=== PATIENT | female | born 1955 | race Caucasian/White ===

== ENCOUNTER 2016-08-03 06:43 | Day surgery (SDC) | payer BC ==
[~2016-08-03 06:43] MED LIST: Lactated Ringers 1,000 ML IV SCH; Lidocaine 1%/Sod Bicarbonate in NS 8.4% 1 ML Syringe IV PRN; Sodium Chloride 0.9% 10 ML Syringe FLUSH PRN
[2016-08-03] MEDS ORDERED: Dexamethasone 4 MG/ML 5 ML MDV ONE (07:17)
[2016-08-03] MEDS ORDERED: fentaNYL 100 MCG/2 ML SDV ONE (07:17)
[2016-08-03] MEDS ORDERED: Lidocaine 1% 6 ML ONE (07:17)
[2016-08-03] MEDS ORDERED: Ondansetron 4 MG/2 ML SDV ONE (07:17)
[2016-08-03] MEDS ORDERED: Midazolam 1 MG/ML 2 ML SDV ONE (07:17)
[2016-08-03] MEDS ORDERED: Propofol 200 MG/20 ML SDV ONE (07:17)
[2016-08-03] MEDS ORDERED: ceFAZolin 1 GM Vial ONE (07:17)
[2016-08-03] MEDS ORDERED: Ketorolac 30 MG/ML SDV ONE (07:17)
--- NOTE | 2016-08-03 07:27 | PCM.PREANE ---
Preanesthetic Assessment - Physical Assessment NPO Status Date: 08/02/16 NPO Status Time: 21:30 O2 Sat by Pulse Oximetry: 99 Respiratory Rate: 16 Vital Signs: Last Vital Signs Temp 36.2 C 08/03/16 06:55 Pulse 91 08/03/16 06:55 Resp 16 08/03/16 06:55 BP 158/88 H 08/03/16 06:55 Pulse Ox 99 08/03/16 06:55 Height: 1.55 m Weight: 88.451 kg - Lab Values: Laboratory Last Values WBC 8.32 K/mm3 (3.98-10.04) 08/02/16 13:38 RBC 5.13 M/mm3 (3.98-5.22) 08/02/16 13:38 Hgb 14.9 gm/L (11.2-15.7) 08/02/16 13:38 Hct 45.0 % (34.1-44.9) H 08/02/16 13:38 MCV 87.7 fl (79.4-94.8) 08/02/16 13:38 MCH 29.0 pg (25.6-32.2) 08/02/16 13:38 MCHC 33.1 g/dl (32.2-35.5) 08/02/16 13:38 RDW Std Deviation 49.4 fL (36.4-46.3) H 08/02/16 13:38 Plt Count 310 K/mm3 (182-369) 08/02/16 13:38 MPV 10.4 fl (9.4-12.3) 08/02/16 13:38 Neut % (Auto) 62.0 % (34.0-71.1) 08/02/16 13:38 Lymph % (Auto) 25.7 % (19.3-51.7) 08/02/16 13:38 [place] % (Auto) 10.1 % (4.7-12.5) 08/02/16 13:38 Eos % (Auto) 1.2 (0.7-5.8) 08/02/16 13:38 Baso % (Auto) 0.5 % (0.1-1.2) 08/02/16 13:38 Neut # (Auto) 5.16 K/mm3 (1.56-6.13) 08/02/16 13:38 Lymph # (Auto) 2.14 K/mm3 (1.18-3.74) 08/02/16 13:38 [place] # (Auto) 0.84 K/mm3 (0.24-0.36) H 08/02/16 13:38 Eos # (Auto) 0.10 K/mm3 (0.04-0.36) 08/02/16 13:38 Baso # (Auto) 0.04 K/mm3 (0.01-0.08) 08/02/16 13:38 Blood Type A POSITIVE 08/02/16 13:38 Gel Antibody Screen Negative 08/02/16 13:38 - Allergies Allergies/Adverse Reactions: Allergies Allergy/AdvReac Type Severity Reaction Status Date / Time lisinopril Allergy Cannot Verified 08/02/16 13:49 Remember Penicillins Allergy Cannot Verified 08/02/16 13:49 Remember - Acknowledgements Anesthesia Type Planned: General Anesthesia Pt an Appropriate Candidate for the Planned Anesthesia: Yes Alternatives and Risks of Anesthesia Discussed w Pt/Guardian: Yes Pt/Guardian Understands and Agrees with Anesthesia Plan: Yes PreAnesthesia Questionnaire HEENT History: Reports: Allergic rhinitis, Otitis media Other HEENT History: eustachian tube dysfunction, pharyngitis, has glasses and flipper Cardiovascular History: Reports: Afib, High cholesterol, Hypertension Respiratory History: Reports: None Gastrointestinal History: Reports: GERD Genitourinary History: Reports: Urinary incontinence, UTI, recurrent Other Genitourinary History: vaginal itching, viral warts, stress urinary incontinence, fibroid, post menopausal bleeding, L breast cyst, vaginitis GRAIN WEIGHER History: Reports: Other (see below) Other OB/BYN History: vaginal dryness Musculoskeletal History: Reports: Other (see below) Other Musculoskeletal History: restless leg syndrome, L illiotibial band syndrome, L knee pain Neurological History: Reports: Migraines, Vertigo, Other (see below) Other Neuro History: restless leg syndrome, dizziness Psychiatric History: Reports: Anxiety, Depression Endocrine/Metabolic History: Reports: Hypothyroidism Hematologic History: Reports: None Immunologic History: Reports: None Oncologic (Cancer) History: Reports: None Dermatologic History: Reports: Other (see below) Other Dermatologic History: atopic dermatitis, back nevus - Infectious Disease History Infectious Disease History: Reports: Chicken pox, Measles - Past Surgical History Head Surgeries/Procedures: Reports: None HEENT Surgical History: Reports: Oral surgery, Tonsillectomy Female Surgical History: Reports: Tubal ligation - SUBSTANCE USE Smoking Status *Q: Never Smoker Recreational Drug Use History: No - HOME MEDS Home Medications: Home Meds Carbidopa/Levodopa [Carbidopa-Levodopa 25-100] 1 tab PO BEDTIME 05/23/15 [ History] LORazepam [Ativan] 1 mg PO BID PRN 05/23/15 [History] Levothyroxine 75 mcg PO DAILY 05/23/15 [History] Simvastatin [Zocor] 40 mg PO BEDTIME 05/23/15 [History] Venlafaxine HCl [Venlafaxine ER] 75 mg PO DAILY 05/23/15 [History] amLODIPine [Norvasc] 10 mg PO DAILY 05/23/15 [History] Fish Oil/[place]-3 Fatty Acids [Fish Oil 1,000 MG] 2 cap PO DAILY 08/02/16 [ History] Fluticasone Propionate [Flonase] 2 spray NASBOTH BID 08/02/16 [History] Hydrochlorothiazide 25 mg PO DAILY 08/02/16 [History] - CURRENT (IN HOUSE) MEDS Current Meds: Current Medications Lactated Ringer's (Ringers, Lactated) 1,000 mls @ 125 mls/hr IV ASDIRECTED TANESHA Stop: 08/03/16 23:00 Lidocaine/Sodium Bicarbonate (Buffered Lidocaine 1% In Ns 8.4%) 0.25 ml IV ONETIME PRN PRN Reason: Prior to IV Start Stop: 08/03/16 18:00 Sodium Chloride (Saline Flush) 10 ml FLUSH ASDIRECTED PRN PRN Reason: Keep Vein Open Stop: 08/03/16 18:00 Discontinued Medications Cefazolin Sodium (Ancef) Confirm Administered Dose 2 gm .ROUTE .STK-MED ONE Stop: 08/03/16 07:18 Dexamethasone (Dexamethasone) Confirm Administered Dose 20 mg .ROUTE .STK-MED ONE Stop: 08/03/16 07:18 Fentanyl (Sublimaze) Confirm Administered Dose 100 mcg .ROUTE .STK-MED ONE Stop: 08/03/16 07:18 Lidocaine HCl (Xylocaine-Mpf 1%) Confirm Administered Dose 6 mls @ as directed .ROUTE .STK-MED ONE Stop: 08/03/16 07:18 Ketorolac Tromethamine (Toradol) Confirm Administered Dose 60 mg .ROUTE .STK- MED ONE Stop: 08/03/16 07:18 Midazolam HCl (Versed 1 Mg/Ml) Confirm Administered Dose 2 mg .ROUTE .STK-MED ONE Stop: 08/03/16 07:18 Ondansetron HCl (Zofran) Confirm Administered Dose 4 mg .ROUTE .STK-MED ONE Stop: 08/03/16 07:18 Propofol (Diprivan 20 Ml) Confirm Administered Dose 200 mg .ROUTE .STK-MED ONE Stop: 08/03/16 07:18 Preanesthetic Assessment - ANESTHESIA/TRANSFUSION/FAMILY HX Anesthesia/Transfusion History: No Prior Transfusion(s), Prior Anesthesia Type of Anesthesia Reaction: Reports: Other (see below) (recent bout with vertigo/scopalamine patch placed.). 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 Respiratory: Reports: no symptoms (quit smoking 25 years ago.) Cardiovascular: Reports: no symptoms (history of atrial fibrillation), blood pressure problem, dyspnea on exertion, lightheadedness (with vertigo) GI: Reports: no symptoms (GERD) Other: Reports: Easy Bruising, Thyroid Problems, Depression, Anxiety - PHYSICAL ASSESSMENT HR: 91 O2 Sat by Pulse Oximetry: 99 RR: 16 BP: 158/88 Temp: 36.2 C Vital Signs: Last Vital Signs Temp 36.2 C 08/03/16 06:55 Pulse 91 08/03/16 06:55 Resp 16 08/03/16 06:55 BP 158/88 H 08/03/16 06:55 Pulse Ox 99 08/03/16 06:55 Height: 1.55 m Weight: 88.451 kg NPO Status Date: 08/02/16 NPO Status Time: 21:30 ASA Class: 2 Mental Status: Alert & Oriented x3 Airway Class: Mallampati = 3 Dentition: Reports: Normal Dentition, Partial, Caries Thyro-Mental Finger Breadths: 3 Mouth Opening Finger Breadths: 3 ROM/Head Extension: Full Respiratory Status: lungs clear to auscultation bilaterally Cardiovascular Status: regular rate & rhythm, normal S1, S2, no murmur - LAB Values: Laboratory Last Values WBC 8.32 K/mm3 (3.98-10.04) 08/02/16 13:38 RBC 5.13 M/mm3 (3.98-5.22) 08/02/16 13:38 Hgb 14.9 gm/L (11.2-15.7) 08/02/16 13:38 Hct 45.0 % (34.1-44.9) H 08/02/16 13:38 MCV 87.7 fl (79.4-94.8) 08/02/16 13:38 MCH 29.0 pg (25.6-32.2) 08/02/16 13:38 MCHC 33.1 g/dl (32.2-35.5) 08/02/16 13:38 RDW Std Deviation 49.4 fL (36.4-46.3) H 08/02/16 13:38 Plt Count 310 K/mm3 (182-369) 08/02/16 13:38 MPV 10.4 fl (9.4-12.3) 08/02/16 13:38 Neut % (Auto) 62.0 % (34.0-71.1) 08/02/16 13:38 Lymph % (Auto) 25.7 % (19.3-51.7) 08/02/16 13:38 [place] % (Auto) 10.1 % (4.7-12.5) 08/02/16 13:38 Eos % (Auto) 1.2 (0.7-5.8) 08/02/16 13:38 Baso % (Auto) 0.5 % (0.1-1.2) 08/02/16 13:38 Neut # (Auto) 5.16 K/mm3 (1.56-6.13) 08/02/16 13:38 Lymph # (Auto) 2.14 K/mm3 (1.18-3.74) 08/02/16 13:38 [place] # (Auto) 0.84 K/mm3 (0.24-0.36) H 08/02/16 13:38 Eos # (Auto) 0.10 K/mm3 (0.04-0.36) 08/02/16 13:38 Baso # (Auto) 0.04 K/mm3 (0.01-0.08) 08/02/16 13:38 Blood Type A POSITIVE 08/02/16 13:38 Gel Antibody Screen Negative 08/02/16 13:38 Reviewed and noted. - IMAGING/EKG Impressions: EKG: SR rte= 89 - ALLERGIES Allergies/Adverse Reactions: Allergies Allergy/AdvReac Type Severity Reaction Status Date / Time lisinopril Allergy Cannot Verified 08/02/16 13:49 Remember Penicillins Allergy Cannot Verified 08/02/16 13:49 Remember - ANESTHESIA PLAN Preop Beta [place]a: No Anesthesia Type Planned: General Anesthesia - ACKNOWLEDGEMENTS Pt an Appropriate Candidate for the Planned Anesthesia: Yes Alternatives and Risks of Anesthesia Discussed w Pt/Guardian: Yes Pt/Guardian Understands and Agrees with Anesthesia Plan: Yes
[2016-08-03] MEDS ORDERED: Scopolamine 1.5 MG Transdermal Patch TRDERM ONE (07:28)
[2016-08-03] MEDS ORDERED: Ondansetron 4 MG/2 ML SDV IVPUSH PRN (08:04)
--- NOTE | 2016-08-03 08:33 | PCM.POSTAN ---
POST ANESTHESIA ASSESSMENT - MENTAL STATUS Mental Status: alert - VITAL SIGNS Pulse Rate: 97 SaO2: 98 Resp Rate: 11 Blood Pressure: 149/92 Temperature: 36.7 C - RESPIRATORY Respiratory Status: respiratory rate WNL, airway patent, O2 saturation stable, supplemental oxygen - CARDIOVASCULAR CV Status: pulse rate WNL, blood pressure stable - GASTROINTESTINAL GI Status: no symptoms - POST OP HYDRATION Hydration Status: adequate & stable
--- NOTE | 2016-08-03 08:44 | PCM.OPNOTE ---
- General Post-Op/Procedure Note Date of Surgery/Procedure: 08/03/16 Operative Procedure(s): Dilatation curettage, hysteroscopy, [id number] Pre Op Diagnosis: Postmenopausal bleeding, thickened endometrium by ultrasound, fibroid uterus, subserosal Post-Op Diagnosis: Same Anesthesia Technique: General ET tube Primary Surgeon: Hesham Bangura Anesthesia Provider: Laila Castañeda Manager Council: Gail Agosto ([id number]) Fluid Replacement, Intraop: 500 Output, Urine Amount: 0 EBL in mLs: 0 Drain/Tube Comments:: None Complications: None Condition: Good Free Text/Narrative:: Patient was transported to operating room #2 placed under general anesthesia with endotracheal intubation in the low dorsal lithotomy position. Prepared and draped in sterile fashion. SCDs in place and functioning. Prior surgery. Ancef 2 g intravenously given prior surgery. Timeout performed confirming name , date of , and procedure, D&C, and hysteroscopy. Examination under anesthesia revealed anterior uterus. No abnormalities could be palpated, albeit there is the subserosal fibroid 2.8 cm in diameter mentioned on the ultrasound. No adnexal masses. The uterus was carefully dilated to accommodate the hysteroscope, and examination of endometrial cavity revealed a small polyp at approximate 6:00. No other retinal mouth is. No significant amount of tissue the initial cavity appeared otherwise atrophic. The polyp was grasped with Reginald stone forceps, and removed without difficulty. Measured approximately 1 x 2 mm scant amount of tissue was obtained. Less than 1 mL utilizing sharp and Michael curette inspection of the initial cavity revealed. No additional lesion, and hysteroscope patient tolerated procedure well, transported post anesthesia care unit in satisfactory condition. No blood transfusions, required none anticipated. Of talked with the patient's and discussed surgical findings. One set of pictures taken 5 urge is imaged 001, shows the right fallopian tube ostium. Image 02, shows the area where the left fallopian tube ostium. Would, probably be, but could not be seen. Specifically, imaged, 003, showed a small polyp at approximate 5:00 and centering of image, and imaged, 004, shows the polyp, at 6:00 images or 5 shows same area after removal of the polyp
[2016-08-03] MEDS ORDERED: fentaNYL 100 MCG/2 ML SDV IVPUSH PRN (09:10)
[2016-08-03] MEDS ORDERED: HYDROmorphone 0.5 MG/0.5 ML Syringe IVPUSH PRN (09:10)
[2016-08-03 09:12] VITALS: BP 138/83
--- NOTE | 2016-08-03 09:14 | PCM48HPAN ---
Post Anesthesia Note - EVALUATION WITHIN 48HRS OF ANESTHETIC Vital Signs in Normal Range: Yes Patient Participated in Evaluation: Yes Respiratory Function Stable: Yes Airway Patent: Yes Cardiovascular Function Stable: Yes Hydration Status Stable: Yes Pain Control Satisfactory: Yes Nausea and Vomiting Control Satisfactory: Yes Mental Status Recovered: Yes
== END 2016-08-03 09:51 | disposition home or self-care (01) ==
LOC: JD.SDS 06:43
PROVIDERS: ATTEND Obstetrics & Gynecology
DX: N85.01 Benign endometrial hyperplasia (principal); F41.9 Anxiety disorder, unspecified; F32.9 Major depressive disorder, single episode, unspecified; E78.00 Pure hypercholesterolemia, unspecified; I10 Essential (primary) hypertension; E78.1 Pure hyperglyceridemia; E03.9 Hypothyroidism, unspecified; Z88.0 Allergy status to penicillin; Z88.8 Allergy status to other drugs, medicaments and biological substances; Z79.899 Other long term (current) drug therapy; Z98.890 Other specified postprocedural states; Z98.51 Tubal ligation status; Z87.891 Personal history of nicotine dependence; Z72.0 Tobacco use
CPT/HCPCS: 36415; 58558; 85025; 86850; 86900; 86901; 93005; A9270; J0690; J1100; J1885; J2250; J2405; J3010; J7120; 00940; J2704

== ENCOUNTER 2017-01-13 13:30 | Emergency (ER) | payer BC ==
[2017-01-13 13:43] VITALS: BP 159/87
--- NOTE | 2017-01-13 13:55 | EDM.PDOC ---
ED HPI GENERAL MEDICAL PROBLEM - General Chief Complaint: Gastrointestinal Problem Stated Complaint: DIARRHEA/DIZZINESS Time Seen by Provider: 01/13/17 13:55 Source of Information: Reports: Patient History Limitations: Reports: No Limitations - History of Present Illness INITIAL COMMENTS - FREE TEXT/NARRATIVE: 61-year-old female presents the ED with acute onset of severe diarrhea. started mid afternoon yesterday and she's gone 14-15 times since. No blood in the stool noted. Stool is large-volume fluid loss per rectum. mild associated lower abdominal cramping pain. mild nausea without any vomiting. and dizzy when standing today. did not take any of her normal medications which include antihypertensives and thyroid supplement and statin medication. she does now remember being placed on antibiotic by dentist 2 weeks ago for dental infection. was a large pink tablets 4 times daily and she is allergic to Amoxil. My thought processes is most likely was clindamycin. She has not been traveling recently. other family members however have had gastroenteritis symptoms. She's been eating at home for the last week and is unlikely that she contracted any foodborne illness. patient did experience fever and chills yesterday afternoon at onset of illness. fells that she has been running a fever overnight. she's had no previous abdominal surgery. Onset: Sudden Onset Date: 01/12/17 Onset Time: 15:00 Duration: Hour(s):, Getting Worse Location: Reports: Other ( severe high volume water loss per rectum.) Quality: Reports: Ache, Other ( chills) Improves with: Reports: None Worsens with: Reports: None Context: Denies: Activity, Exercise, Lifting, Sick Contact, Trauma Associated Symptoms: Reports: Diaphoresis, Fever/Chills, Loss of Appetite, Malaise, Nausea/Vomiting. 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 (see below) Other Treatments BAR CAPTAIN: tylenol for fever Generalized Pain Score (Numeric/FACES): 8 - Related Data Allergies Allergy/AdvReac Type Severity Reaction Status Date / Time lisinopril Allergy Cannot Verified 08/02/16 13:49 Remember Penicillins Allergy Cannot Verified 08/02/16 13:49 Remember Home Meds: Home Meds Carbidopa/Levodopa [Carbidopa-Levodopa 25-100] 1 tab PO BEDTIME 05/23/15 [ History] LORazepam [Ativan] 1 mg PO BID PRN 05/23/15 [History] Levothyroxine 75 mcg PO DAILY 05/23/15 [History] Simvastatin [Zocor] 40 mg PO BEDTIME 05/23/15 [History] Venlafaxine HCl [Venlafaxine ER] 75 mg PO DAILY 05/23/15 [History] amLODIPine [Norvasc] 10 mg PO DAILY 05/23/15 [History] Fish Oil/[place]-3 Fatty Acids [Fish Oil 1,000 MG] 2 cap PO DAILY 08/02/16 [ History] Hydrochlorothiazide 25 mg PO DAILY 08/02/16 [History] metroNIDAZOLE [Flagyl] 500 mg PO Q8H #30 tablet 01/13/17 [Rx] Past Medical History HEENT History: Reports: Allergic Rhinitis, Otitis Media Other HEENT History: eustachian tube dysfunction, pharyngitis, has glasses and flipper Cardiovascular History: Reports: Afib, High Cholesterol, Hypertension Other Cardiovascular History: heartratte today is ST-regular and strong 01-12-17 Respiratory History: Reports: None Gastrointestinal History: Reports: GERD Genitourinary History: Reports: Urinary Incontinence, UTI, Recurrent Other Genitourinary History: vaginal itching, viral warts, stress urinary incontinence, fibroid, post menopausal bleeding, L breast cyst, vaginitis 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) Other OB/BYN History: vaginal dryness Musculoskeletal History: Reports: Other (See Below) Other Musculoskeletal History: restless leg syndrome Neurological History: Reports: Other (See Below) Other Neuro History: restless leg syndrome Psychiatric History: Reports: Anxiety, Depression Endocrine/Metabolic History: Reports: Hypothyroidism Hematologic History: Reports: None Immunologic History: Reports: None Oncologic (Cancer) History: Reports: None Dermatologic History: Reports: Other (See Below) Other Dermatologic History: atopic dermatitis, back nevus - Infectious Disease History Infectious Disease History: Reports: Chicken Pox, Measles - Past Surgical History Head Surgeries/Procedures: Reports: None HEENT Surgical History: Reports: Oral Surgery, Tonsillectomy Female Surgical History: Reports: Tubal Ligation Social & Family History - Tobacco Use Smoking Status *Q: Former Smoker Used Tobacco, but Quit: Yes Month Tobacco Last Used: 3 yrs - Caffeine Use Caffeine Use: Reports: Coffee, Soda - Recreational Drug Use Recreational Drug Use: No - Living Situation & Occupation Living situation: Reports: Occupation: Employed ED ROS GENERAL - Review of Systems Review Of Systems: See Below Constitutional: Reports: Fever, Chills, Malaise, Weakness, Fatigue, Diaphoresis , Decreased Appetite HEENT: Reports: No Symptoms Respiratory: Reports: No Symptoms Cardiovascular: Reports: No Symptoms Endocrine: Reports: Fatigue GI/Abdominal: Reports: Abdominal Pain, Diarrhea ( in the last), Nausea. Denies : Hematochezia, Stool Incontinence ( nausea without vomiting) : Reports: No Symptoms Musculoskeletal: Reports: Back Pain, Muscle Pain Skin: Reports: No Symptoms ( generalized myalgia.) Neurological: Reports: Dizziness, Weakness ( with standing. Feels weak) Psychiatric: Reports: No Symptoms ED EXAM, GI/ABD - Physical Exam Exam: See Below Exam Limited By: No Limitations General Appearance: Alert, WD/WN, Other ( does appear ill.) Eyes: Right: Normal Appearance Throat/Mouth: Normal Inspection, Normal Lips, Normal Oropharynx, Other Head: Atraumatic, Normocephalic Neck: Normal Inspection, Supple, Non-Tender, Full Range of Motion. No: Lymphadenopathy (L), Lymphadenopathy (R) Respiratory/Chest: No Respiratory Distress, Lungs Clear, Normal Breath Sounds, No Accessory Muscle Use, Respiratory Distress ( mild tachypnea at rest.) Cardiovascular: Normal Peripheral Pulses, Regular Rate, Rhythm, No Edema, No Gallop, No Murmur GI/Abdominal Exam: Normal Bowel Sounds, Soft, Non-Tender, No Organomegaly, No Distention Back Exam: Normal Inspection, Full Range of Motion. No: CVA Tenderness (L), CVA Tenderness (R) Extremities: Normal Inspection, Normal Range of Motion, Non-Tender, No Pedal Edema, Normal Capillary Refill Neurological: Alert, Oriented, CN II-XII Intact, Normal Cognition, Normal Gait, Normal Reflexes, No Motor/Sensory Deficits Psychiatric: Normal Affect, Normal Mood Skin Exam: Warm, Dry, Intact, Normal Color, No Rash Course - Vital Signs Last Recorded V/S: Last Vital Signs Temp 36.8 C 01/13/17 13:42 Pulse 131 H 01/13/17 13:42 Resp 20 01/13/17 13:42 BP 159/87 H 01/13/17 13:42 Pulse Ox 98 01/13/17 13:42 - Orders/Labs/Meds Orders: Active Orders 24 hr Category Date Time Status Abdomen 1V Flat [CR] Stat Exams 01/13/17 14:06 Taken C DIFFICILE BY PCR W/NAP1 [MOLEC] Stat Lab 01/13/17 14:05 Ordered CULTURE BLOOD [BC] Stat Lab 01/13/17 14:30 Received CULTURE BLOOD [BC] Stat Lab 01/13/17 14:36 Received Blood Culture x2 Reflex Set [OM.PC] Stat Oth 01/13/17 14:05 Ordered Labs: Laboratory Tests 01/13/17 01/13/17 01/13/17 Range/Units 14:30 14:30 14:30 WBC 6.21 (3.98-10.04) K/mm3 RBC 4.77 (3.98-5.22) M/mm3 Hgb 13.9 (11.2-15.7) gm/L Hct 41.3 (34.1-44.9) % MCV 86.6 (79.4-94.8) fl MCH 29.1 (25.6-32.2) pg MCHC 33.7 (32.2-35.5) g/dl RDW Std Deviation 47.5 H (36.4-46.3) fL Plt Count 239 (182-369) K/mm3 MPV 10.8 (9.4-12.3) fl Neutrophils % (Manual) 76 H (40-60) % Band Neutrophils % 1 (0-10) % Lymphocytes % (Manual) 22 (20-40) % Atypical Lymphs % 1 % Monocytes % (Manual) 0 L (2-10) % Eosinophils % (Manual) 0 L (0.7-5.8) % Basophils % (Manual) 0 L (0.1-1.2) Platelet Estimate Adequate Plt Morphology Comment Normal RBC Morph Comment Normal Sodium 139 (136-145) mEq/L Potassium 2.9 L (3.5-5.1) mEq/L Chloride 105 (98-107) mEq/L Carbon Dioxide 22 (21-32) mEq/L Anion Gap 14.9 (5-15) BUN 7 (7-18) mg/dL Creatinine 0.8 (0.55-1.02) mg/dL Est Cr Clr Drug Dosing 55.73 mL/min Estimated GFR (MDRD) > 60 (>60) mL/min BUN/Creatinine Ratio 8.8 L (14-18) Glucose 133 H (80-115) mg/dL Lactic Acid 1.7 (0.4-2.0) mmol/L Calcium 9.3 (8.5-10.1) mg/dL Total Bilirubin 0.5 (0.2-1.0) mg/dL AST 34 (15-37) U/L ALT 35 (14-59) U/L Alkaline Phosphatase 69 (46-116) U/L C-Reactive Protein 8.8 H* (<1.0) mg/dL Total Protein 7.1 (6.4-8.2) g/dl Albumin 3.2 L (3.4-5.0) g/dl Globulin 3.9 gm/dL Albumin/Globulin Ratio 0.8 L (1-2) Urine Color (Yellow) Urine Appearance (Clear) Urine pH (5.0-8.0) Ur Specific [place] (1.005-1.030) Urine Protein (Negative) Urine Glucose (UA) (Negative) Urine Ketones (Negative) Urine Occult Blood (Negative) Urine Nitrite (Negative) Urine Bilirubin (Negative) Urine Urobilinogen (0.2-1.0) Ur Leukocyte Esterase (Negative) Urine RBC (0-5) /hpf Urine WBC (0-5) /hpf Ur Epithelial Cells (0-5) /hpf Urine Bacteria (FEW) /hpf Urine Mucus (FEW) /hpf Ketones (0.0-0.3) mM 01/13/17 01/13/17 Range/Units 14:30 15:53 WBC (3.98-10.04) K/mm3 RBC (3.98-5.22) M/mm3 Hgb (11.2-15.7) gm/L Hct (34.1-44.9) % MCV (79.4-94.8) fl MCH (25.6-32.2) pg MCHC (32.2-35.5) g/dl RDW Std Deviation (36.4-46.3) fL Plt Count (182-369) K/mm3 MPV (9.4-12.3) fl Neutrophils % (Manual) (40-60) % Band Neutrophils % (0-10) % Lymphocytes % (Manual) (20-40) % Atypical Lymphs % % Monocytes % (Manual) (2-10) % Eosinophils % (Manual) (0.7-5.8) % Basophils % (Manual) (0.1-1.2) Platelet Estimate Plt Morphology Comment RBC Morph Comment Sodium (136-145) mEq/L Potassium (3.5-5.1) mEq/L Chloride (98-107) mEq/L Carbon Dioxide (21-32) mEq/L Anion Gap (5-15) BUN (7-18) mg/dL Creatinine (0.55-1.02) mg/dL Est Cr Clr Drug Dosing mL/min Estimated GFR (MDRD) (>60) mL/min BUN/Creatinine Ratio (14-18) Glucose (80-115) mg/dL Lactic Acid (0.4-2.0) mmol/L Calcium (8.5-10.1) mg/dL Total Bilirubin (0.2-1.0) mg/dL AST (15-37) U/L ALT (14-59) U/L Alkaline Phosphatase (46-116) U/L C-Reactive Protein (<1.0) mg/dL Total Protein (6.4-8.2) g/dl Albumin (3.4-5.0) g/dl Globulin gm/dL Albumin/Globulin Ratio (1-2) Urine Color Yellow (Yellow) Urine Appearance Clear (Clear) Urine pH 7.0 (5.0-8.0) Ur Specific [place] 1.020 (1.005-1.030) Urine Protein 1+ H (Negative) Urine Glucose (UA) 2+ H (Negative) Urine Ketones 1+ H (Negative) Urine Occult Blood Negative (Negative) Urine Nitrite Negative (Negative) Urine Bilirubin 1+ H (Negative) Urine Urobilinogen 1.0 (0.2-1.0) Ur Leukocyte Esterase Negative (Negative) Urine RBC Not seen (0-5) /hpf Urine WBC 0-5 (0-5) /hpf Ur Epithelial Cells 0-5 (0-5) /hpf Urine Bacteria Not seen (FEW) /hpf Urine Mucus Not seen (FEW) /hpf Ketones 0.35 (0.0-0.3) mM Meds: Medications Discontinued Medications Generic Name Dose Route Start Last Admin Trade Name Freq PRN Reason Stop Dose Admin Dextrose/Sodium Chloride 1,000 mls @ 999 mls/hr 01/13/17 14:15 01/13/17 14:33 Dextrose 5%-Normal Saline IV 999 mls/hr ASDIRECTED TANESHA Administration Potassium Chloride/Dextrose/Sod Cl 1,000 mls @ 125 mls/hr 01/13/17 15:45 D5 Ns With 40 Meq Kcl IV ASDIRECTED TANESHA Ketorolac Tromethamine 30 mg 01/13/17 14:15 01/13/17 14:34 Toradol IVPUSH 30 mg ONETIME TANESHA Administration Metronidazole 500 mg 01/13/17 17:25 01/13/17 17:37 Flagyl PO 01/13/17 17:26 500 mg ONETIME ONE Administration Ondansetron HCl 4 mg 01/13/17 14:15 01/13/17 14:34 Zofran IVPUSH 01/13/17 14:16 4 mg ONETIME ONE Administration Potassium Chloride 20 meq 01/13/17 17:24 01/13/17 17:37 Klor-Con M20 PO 01/13/17 17:25 20 meq ONETIME ONE Administration - Radiology Interpretation Free Text/Narrative:: 61-year-old female presents to the ED for evaluation of aggressive onset of diarrhea 24 hours ago. She's got about 14-15 times high volume water loss per rectum. No blood noted. history of antibiotic usage for about one week i.e. suspect clindamycin 300 mg 4 times a day for from the dentist for dental infection. It did clear up the dental pain. Last medication dosage was about a week ago. therefore current diarrhea may well be Clostridium difficile enteritis. patient is acutely ill with fever chills. Mild associated nausea. Routine labs and stool for culture and sensitivity WBCs and C. difficile to be done. Blood cultures 2 will be obtained. IV will be D5 normal saline at open. Will give her Toradol 30 mg IV with Zofran 4 mg IV. - Re-Assessments/Exams Free Text/Narrative Re-Assessment/Exam: 01/13/17 17:33: patient has not been able to have a bowel movement since in the department. we did confirm that the tablets she was taking were is in fact clindamycin 300 mg 4 times a day. therefore still strongly suspect that she has C. difficile enteritis. she will therefore go home with a collection chamber for this organism and return the specimen to the lab when one becomes available. She will then start Flagyl 500 mg 3 times daily for the next 10 days to clear up infection sh she has potassium supplements at home which she has not been taking. She is at been advised that the diarrhea has reduced her serum potassium levels to quite low levels. She was given 20 mEq tablet in the ED plus to his potassium added to her IV. She will take 20 mEq daily for the next 4 days or until the diarrhea stops which I expect to take 48-72 hours. she is advised to drink plenty of fluids such as Gatorade or Powerade or juices to help restore her electrolyte status. clear fluid diet ideally for the next 24 hours until the diarrhea comes under control. Avoid all dairy products and no apple or grape juice until stools become formed up and also no fatty foods. Departure - Departure Time of Disposition: 17:37 Disposition: Home, Self-Care 01 Condition: Fair Clinical Impression: Hypokalemia due to loss of potassium, C. difficile diarrhea - Discharge Information Prescriptions: metroNIDAZOLE [Flagyl] 500 mg PO Q8H #30 tablet Instructions: Hypokalemia, Clostridium Difficile Infection, [id number] Referrals: Keysha Paredes PA [Primary Care Provider] - Forms: ED Department Discharge Additional Instructions: evaluation the emergency room today in regards to development of severe diarrhea starting yesterday afternoon. history of recent use of clindamycin 4 times daily for dental infection which was discontinued about a week ago. unfortunately you did not have any stools while in the department today and therefore confirmation of C. difficile enteritis could not be carried out. However clinically it is highly suspicious this is what you have. the collection chambers have been sent home with you to collect a sample to return to the lab didn't either later tonight or tomorrow morning. after this she may start her antibiotic Flagyl 500 mg which is to be taken 3 times daily for the next 10 days to clear up this infection. continue Gatorade and Powerade to can maintain hydration. Stay away from all dairy products and no apple or grape juice until stools are formed back up. When hungry may try crackers broth soup and then advance to light diet such as Jell-O past approached a exhibits etc. stay away from fatty foods until stools are formed back up. usually things improve in 48-72 hours after starting oral antibiotic. second problem was low potassium secondary to loss in diarrhea stool. you're given 20 mEq of potassium orally in the ED plus some in your IV while you're in the department. need to take 20 mEq daily for the next 3 days to restore your potassium to normal values. there is also some potassium in Gatorade and Powerade and other juices. follow-up with personal physician if not markedly improved in 72 hours time or return to the ED. - My Orders Last 24 Hours: My Active Orders 01/13/17 14:05 C DIFFICILE BY PCR W/NAP1 [MOLEC] Stat Blood Culture x2 Reflex Set [OM.PC] Stat 01/13/17 14:06 Abdomen 1V Flat [CR] Stat 01/13/17 14:30 CULTURE BLOOD [BC] Stat 01/13/17 14:36 CULTURE BLOOD [BC] Stat - Assessment/Plan Last 24 Hours: My Active Orders 01/13/17 14:05 C DIFFICILE BY PCR W/NAP1 [MOLEC] Stat Blood Culture x2 Reflex Set [OM.PC] Stat 01/13/17 14:06 Abdomen 1V Flat [CR] Stat 01/13/17 14:30 CULTURE BLOOD [BC] Stat 01/13/17 14:36 CULTURE BLOOD [BC] Stat
[2017-01-13] MEDS ORDERED: Dextrose 5%-0.9% NaCl 1,000 ML IV SCH (14:15)
[2017-01-13] MEDS ORDERED: Ketorolac 30 MG/ML SDV IVPUSH SCH (14:15)
[2017-01-13] MEDS ORDERED: Ondansetron 4 MG/2 ML SDV IVPUSH ONE (14:15)
[2017-01-13] MEDS ORDERED: D5%-0.9% NaCl w/ KCl 40 meq 1,000 ML IV SCH (15:45)
[2017-01-13] MEDS ORDERED: Potassium Chloride 20 MEQ Tab.ER PO ONE (17:24)
[2017-01-13] MEDS ORDERED: metroNIDAZOLE 500 MG Tab PO ONE (17:25)
--- NOTE | 2017-01-14 17:59 | CR ---
Abdomen: Supine view of the abdomen was obtained. Comparison: No prior abdominal study. Calcifications are seen within the pelvis compatible with phleboliths. Bowel gas pattern appears normal. Sclerotic area is noted within the left iliac bone most likely due to large bone island. Impression: 1. Incidental findings. Nothing acute is seen on supine abdominal x-ray. Diagnostic code #2
== END 2017-01-13 18:02 | disposition home or self-care (01) ==
LOC: JD.ED 13:30
DX: E87.6 Hypokalemia (principal); A04.7 Enterocolitis due to Clostridium difficile; E78.00 Pure hypercholesterolemia, unspecified; I10 Essential (primary) hypertension; F41.9 Anxiety disorder, unspecified; F32.9 Major depressive disorder, single episode, unspecified; E03.9 Hypothyroidism, unspecified; K21.9 Gastro-esophageal reflux disease without esophagitis; Z88.0 Allergy status to penicillin; Z88.8 Allergy status to other drugs, medicaments and biological substances; Z79.899 Other long term (current) drug therapy; Z87.440 Personal history of urinary (tract) infections; Z98.890 Other specified postprocedural states; Z87.891 Personal history of nicotine dependence
CPT/HCPCS: 36415; 74000; 80053; 81001; 82009; 83605; 85025; 86140; 87040; 96361; 96374; 96375; 99284; A9270; J1885; J2405; J7042

== ENCOUNTER 2017-03-28 08:12 | Day surgery (SDC) | payer BC ==
[2017-03-28] MEDS ORDERED: Bupivacaine 0.25% 30 ML SDV ONE (08:36)
[2017-03-28] MEDS ORDERED: EPINEPHrine 1 MG/ML 30 ML MDV ONE (08:36)
--- NOTE | 2017-03-28 09:38 | PCM.PREANE ---
Preanesthetic Assessment - Anesthesia/Transfusion/Family Hx Anesthesia History: Prior Anesthesia Without Reaction Family History of Anesthesia Reaction: No Transfusion History: No Prior Transfusion(s) Intubation History: Unknown - Review of Systems General: No Symptoms Pulmonary: No Symptoms Cardiovascular: No Symptoms Gastrointestinal: No Symptoms Neurological: Dizziness, Other (Vertigo very infrequent occurance. ) Other: Reports: Depression (Restless leg syndrome controlled with medication. ) , Anxiety - Physical Assessment NPO Status Date: 03/27/17 NPO Status Time: 22:00 O2 Sat by Pulse Oximetry: 97 Respiratory Rate: 16 Vital Signs: Last Vital Signs Temp 36.7 C 03/28/17 08:30 Pulse 95 03/28/17 08:30 Resp 16 03/28/17 08:30 BP 137/81 03/28/17 08:30 Pulse Ox 97 03/28/17 08:30 Height: 1.55 m Weight: 83.915 kg ASA Class: 2 Mental Status: Alert & Oriented x3 Airway Class: Mallampati = 2 Dentition: Reports: Normal Dentition, Partial (lower) Thyro-Mental Finger Breadths: 2 Mouth Opening Finger Breadths: 3 ROM/Head Extension: Full Lungs: Clear to Auscultation, Normal Respiratory Effort Cardiovascular: Regular Rate, Regular Rhythm - Lab Values: Laboratory Last Values MRSA (PCR) Negative 03/15/17 12:30 Reviewed K 3.8 today. - Allergies Allergies/Adverse Reactions: Allergies Allergy/AdvReac Type Severity Reaction Status Date / Time lisinopril Allergy Cannot Verified 03/28/17 09:00 Remember Penicillins Allergy Cannot Verified 03/28/17 09:00 Remember - Acknowledgements Anesthesia Type Planned: General Anesthesia, Regional Block Pt an Appropriate Candidate for the Planned Anesthesia: Yes Alternatives and Risks of Anesthesia Discussed w Pt/Guardian: Yes Pt/Guardian Understands and Agrees with Anesthesia Plan: Yes PreAnesthesia Questionnaire HEENT History: Reports: Allergic Rhinitis, Otitis Media, Other (See Below) Other HEENT History: eustachian tube dysfunction, pharyngitis, has glasses and flipper Cardiovascular History: Reports: Afib, High Cholesterol, Hypertension Other Cardiovascular History: heartratte today is ST-regular and strong 01-12-17 Respiratory History: Reports: None Gastrointestinal History: Reports: GERD, Hemorrhoids Genitourinary History: Reports: Urinary Incontinence, UTI, Recurrent Other Genitourinary History: vaginal itching, viral warts, stress urinary incontinence, fibroid, post menopausal bleeding, L breast cyst, vaginitis 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) Other OB/BYN History: vaginal dryness Musculoskeletal History: Reports: Other (See Below) Other Musculoskeletal History: restless leg syndrome, IT band syndrome, L knee pain, muscle cramps Neurological History: Reports: Migraines, Vertigo, Other (See Below) Other Neuro History: dizzienss, vertigo Psychiatric History: Reports: Anxiety, Depression Endocrine/Metabolic History: Reports: Hypothyroidism, Obesity/BMI 30+ Hematologic History: Reports: None Immunologic History: Reports: None Oncologic (Cancer) History: Reports: None Dermatologic History: Reports: Other (See Below) Other Dermatologic History: atopic dermatitis, back nevus, viral warts - Infectious Disease History Infectious Disease History: Reports: Chicken Pox, Measles - Past Surgical History Head Surgeries/Procedures: Reports: None HEENT Surgical History: Reports: Oral Surgery, Tonsillectomy Respiratory Surgical History: Reports: None Female Surgical History: Reports: Tubal Ligation Endocrine Surgical History: Reports: None Musculoskeletal Surgical History: Reports: None - SUBSTANCE USE Smoking Status *Q: Former Smoker Recreational Drug Use History: No - HOME MEDS Home Medications: Home Meds Carbidopa/Levodopa [Carbidopa-Levodopa 25-100] 1 tab PO BEDTIME 05/23/15 [ History] LORazepam [Ativan] 1 mg PO BID PRN 05/23/15 [History] Levothyroxine 75 mcg PO DAILY 05/23/15 [History] Venlafaxine HCl [Venlafaxine ER] 75 mg PO DAILY 05/23/15 [History] amLODIPine [Norvasc] 10 mg PO DAILY 05/23/15 [History] Fish Oil/[place]-3 Fatty Acids [Fish Oil 1,000 MG] 2 cap PO BID 08/02/16 [History] Hydrochlorothiazide 25 mg PO DAILY 08/02/16 [History] Cefdinir [Omnicef] 300 mg PO BID 03/27/17 [History] atorvaSTATin Calcium [Atorvastatin Calcium] 20 mg PO DAILY 03/27/17 [History] Acetaminophen/HYDROcodone [Printer 325-5 MG] 1 - 2 tab PO Q6H PRN #40 tablet 03/28 [Rx] Cyclobenzaprine [Flexeril] 10 mg PO Q8H PRN #40 tablet 03/28/17 [Rx] - CURRENT (IN HOUSE) MEDS Current Meds: Current Medications Lactated Ringer's (Ringers, Lactated) 1,000 mls @ 125 mls/hr IV ASDIRECTED TANESHA Last Admin: 03/28/17 08:45 Dose: 125 mls/hr Lidocaine/Sodium Bicarbonate (Buffered Lidocaine 1% In Ns 8.4%) 0.25 ml IV ONETIME PRN PRN Reason: Prior to IV Start Last Admin: 03/28/17 08:45 Dose: 0.25 ml Sodium Chloride (Saline Flush) 10 ml FLUSH ASDIRECTED PRN PRN Reason: Keep Vein Open Discontinued Medications Bupivacaine HCl (Marcaine 0.25%) Confirm Administered Dose 30 ml .ROUTE .STK- MED ONE Stop: 03/28/17 08:37 Epinephrine HCl (Adrenalin 1:1000) Confirm Administered Dose 30 mg .ROUTE .STK- MED ONE Stop: 03/28/17 08:37
[2017-03-28] MEDS ORDERED: Rocuronium 50 MG/5 ML Vial ONE (10:00)
[2017-03-28] MEDS ORDERED: Ondansetron 4 MG/2 ML SDV ONE (10:00)
[2017-03-28] MEDS ORDERED: Propofol 200 MG/20 ML SDV ONE (10:00)
[2017-03-28] MEDS ORDERED: fentaNYL 100 MCG/2 ML SDV ONE ×2 (10:00→12:01)
[2017-03-28] MEDS ORDERED: Midazolam 1 MG/ML 2 ML SDV ONE (10:00)
[2017-03-28] MEDS ORDERED: Lidocaine 1% 2 ML ONE (10:02)
[2017-03-28] MEDS ORDERED: EPINEPHrine 1 MG/ML SDV ONE (10:05)
[2017-03-28] MEDS ORDERED: Ropivacaine 0.5% 5 MG/ML 30 ML SDV ONE (10:05)
[2017-03-28] MEDS ORDERED: Lidocaine 1% 4 ML ONE (11:04)
[2017-03-28] MEDS ORDERED: ceFAZolin 1 GM Vial ONE (11:04)
[2017-03-28] MEDS ORDERED: fentaNYL 100 MCG/2 ML SDV IVPUSH PRN (13:32)
--- NOTE | 2017-03-28 13:39 | PCM.POSTAN ---
POST ANESTHESIA ASSESSMENT - MENTAL STATUS Mental Status: Alert, Oriented - VITAL SIGNS Pulse Rate: 101 SaO2: 94 Resp Rate: 8 Blood Pressure: 160/87 Temperature: 36.5 C - RESPIRATORY Respiratory Status: Respiratory Rate WNL, Airway Patent, O2 Saturation Stable, Supplemental Oxygen - CARDIOVASCULAR CV Status: Pulse Rate WNL, Blood Pressure Stable - GASTROINTESTINAL GI Status: No Symptoms - PAIN Pain Score: 0 - POST OP HYDRATION Hydration Status: Adequate & Stable - OBSERVATIONS Free Text/Narrative:: no anesthesia complications noted
--- NOTE | 2017-03-28 13:50 | PCM.SN ---
- Free Text/Narrative Note: Note: 03/28/2017 1344 131/76 86 95% 16 Surgeon and pt request post-op pain control for left shoulder surgery risk of block failure, facial numbness, site infection, and chronic pain discussed with pt and agreed to proceed. All standard monitors est. EKG, BP, Pulse Ox, 2L O2 and 2ml versed, 2ml fentanyl pre-op dx. left shoulder pain post-op dx left shoulder arthroscopy pt for interscalene block placement all standard monitors est. pt ID time out performed IV sedation 2ml versed, 2ml fentanyl, 2L NC O2, sterile prep and drape of left neck and shoulder U/S placed with visualization of brachial plexus from clavicle to cricoid local skin infiltration 22ga. Stimplex A insulated needle visualized at brachial plexus nerve stimulator at .9 Marissa Amps stop at .4 Marissa Amps with good bicep twitch with 1ml NaCl and lose of twitch neg aspirations every 5ml of 0.5% ropivacaine and 1:200,000 epi total of 30ml injected all done with U/S guidance needle withdrawn no complications noted pt tolerated procedure well block settling in start procedure at 1007 end procedure at 1026 129/69 97 97% 16
[2017-03-28 14:36] VITALS: BP 136/79
--- NOTE | 2017-04-02 14:00 | PCM.OPNOTE ---
- General Post-Op/Procedure Note Date of Surgery/Procedure: 03/28/17 Operative Procedure(s): left shoulder video arthrscopy with rotator cuff repair , subacromial decompression and limited debridement Pre Op Diagnosis: left shoulder rotator cuff tear with impingement Post-Op Diagnosis: Same Anesthesia Technique: General ET Tube, Regional Block Primary Surgeon: Chapo Steiner Anesthesia Provider: Harpreet Andrade Jewel Hole Finish Opener: Yoanna Lei EBL in mLs: 5 Complications: None Condition: Good
--- NOTE | 2017-04-02 15:03 | OR ---
DATE OF OPERATION: 03/28/2017 SURGEON: Chapo Steiner MD OPERATION PERFORMED: Left shoulder video arthroscopy, medium rotator cuff repair, subacromial decompression, and limited debridement. PREOPERATIVE DIAGNOSIS: Left shoulder rotator cuff tear with impingement. POSTOPERATIVE DIAGNOSIS: Left shoulder rotator cuff tear with impingement. ANESTHESIA: General endotracheal intubation of interscalene block. ANESTHESIA PROVIDER: Harpreet Andrade CRNA MEDICAL CLAIMS PROCESSOR: Yoanna Lei PA-C. ESTIMATED BLOOD LOSS: 5 mL. COMPLICATIONS: None. CONDITION: Stable. DESCRIPTION OF PROCEDURE: The patient was identified in the preop holding area. Proper site was marked and identified by the surgeon. The patient was taken back to the operating theater. After adequate anesthesia, the patient was placed in the lazy right lateral decubitus position. A wedge was placed posteriorly. All bony prominences were well padded. The patient was secured to the table. At this time, left shoulder was then sterilely prepped and draped in the usual sterile fashion. OR time-out was performed. The patient received 2 g IV Ancef. At this time, a 12-pound traction was applied to the left upper extremity. Standard posterior incision was made. The scope trocar was introduced to the glenohumeral joint. At this time, the patient was noted to have no significant signs of biceps tendinopathy. There was noted to be a small amount of chondromalacia noted of the glenoid. No humeral head chondromalacia was noted. The patient was noted have a full-thickness tear of the supraspinatus near the anterior portion. No infraspinatus tear was noted. No loose foreign bodies in the axillary recess. At this time, an anterior portal was created with the use of a spinal needle and there was a partial synovectomy performed at this time. At this time, attention was turned to the subacromial space. The scope trocar was placed in the subacromial space. At this time, the patient was noted to have a large amount of bursal tissue and a debridement was done of the subacromial space at this time. Lateral portal was then created and again the footprint tear was noted at the convergence of the anterior margin of the supraspinatus. Good bony bleeding bed was then created with the use of a full- radius resector. At this time, the patient was noted to have a type 2/3 acromion and with the use of a 4-0 full-radius bur, a subacromial decompression was done back to a type 1 acromion with a smooth border. At this time, a punch was used medially for a 4.75 mm Arthrex SwiveLock anchor. This was then placed. Two limbs of FiberTape and 2 limbs of FiberWire were then applied. The 2 limbs of the FiberWire were then tied medially for a medial row repair and then all 4 limbs of the suture were brought out laterally with another 4.75 SwiveLock anchor. Punch was again used and a double row repair was placed with another 4.75 mm SwiveLock anchor laterally and it was found to have adequate watertight repair of the rotator cuff. At this time, excess saline was drained from the shoulder. A 3-0 nylon simple suture was used for closure of the skin. Sterile soft dressing was applied as well as a pillow sling. The patient was sent to PACU in stable condition. RICHELLE /[id number]
== END 2017-03-28 15:10 | disposition home or self-care (01) ==
LOC: JD.SDS 08:12
PROVIDERS: ATTEND Orthopaedic Surgery
DX: M75.122 Complete rotator cuff tear or rupture of left shoulder, not specified as traumatic (principal); M75.42 Impingement syndrome of left shoulder; M94.212 Chondromalacia, left shoulder; I10 Essential (primary) hypertension; J30.9 Allergic rhinitis, unspecified; E78.00 Pure hypercholesterolemia, unspecified; E03.9 Hypothyroidism, unspecified; E66.9 Obesity, unspecified; Z68.35 Body mass index [BMI] 35.0-35.9, adult; G25.81 Restless legs syndrome; F41.9 Anxiety disorder, unspecified; F32.9 Major depressive disorder, single episode, unspecified; Z79.899 Other long term (current) drug therapy; Z88.0 Allergy status to penicillin; Z88.8 Allergy status to other drugs, medicaments and biological substances; Z90.89 Acquired absence of other organs; Z98.51 Tubal ligation status; Z87.891 Personal history of nicotine dependence
CPT/HCPCS: 29826; 29827; 36415; 80048; 87641; J0171; J0690; J2250; J2405; J2795; J3010; J3490; J7120; 01610; 64415; J2704

== ENCOUNTER 2017-07-30 06:39 | Day surgery (SDC) | payer BC ==
[~2017-07-30 06:39] MED LIST changes: -Lactated Ringers 1,000 ML IV SCH; +Lidocaine 1%/Sod Bicarbonate in NS 8.4% 1 ML Syringe IDERM PRN; -Lidocaine 1%/Sod Bicarbonate in NS 8.4% 1 ML Syringe IV PRN
[2017-07-30] MEDS ORDERED: Lidocaine 1% with EPINEPHrine 1:100,000 20 ML MDV ONE (06:58)
[2017-07-30] MEDS ORDERED: Bupivacaine 0.5%/EPINEPHrine 1:200,000 50 ML MDV ONE (06:58)
[2017-07-30] MEDS ORDERED: Sodium Chloride 0.9% 50 ML SDV ONE (06:59)
[2017-07-30] MEDS ORDERED: Sodium Chloride 0.9% 0 ML ONE (06:59)
[2017-07-30] MEDS: Lactated Ringers 1,000 ML IV SCH ×3 (07:15→13:11)
--- NOTE | 2017-07-30 07:45 | PCM.PREANE ---
Preanesthetic Assessment - Anesthesia/Transfusion/Family Hx Anesthesia History: Prior Anesthesia Without Reaction Family History of Anesthesia Reaction: No Transfusion History: No Prior Transfusion(s) Intubation History: Unknown - Review of Systems General: Other (sinus congestion, much improved, no cough) Pulmonary: No Symptoms Cardiovascular: Palpitations (Negative holter and stress test a few years ago.) Gastrointestinal: No Symptoms Neurological: No Symptoms Other: Reports: Depression, Anxiety - Physical Assessment NPO Status Date: 07/29/17 NPO Status Time: 21:30 O2 Sat by Pulse Oximetry: 96 Respiratory Rate: 16 Vital Signs: Last Vital Signs Temp 36.8 C 07/30/17 06:50 Pulse 102 H 07/30/17 06:50 Resp 16 07/30/17 06:50 BP 137/90 07/30/17 06:50 Pulse Ox 96 07/30/17 06:50 Height: 1.55 m Weight: 83.007 kg ASA Class: 2 Mental Status: Alert & Oriented x3 Airway Class: Mallampati = 2 Dentition: Reports: Partial Thyro-Mental Finger Breadths: 3 Mouth Opening Finger Breadths: 3 ROM/Head Extension: Full Lungs: Clear to Auscultation, Normal Respiratory Effort Cardiovascular: Regular Rate, Regular Rhythm - Allergies Allergies/Adverse Reactions: Allergies Allergy/AdvReac Type Severity Reaction Status Date / Time lisinopril Allergy Cannot Verified 03/28/17 09:00 Remember Penicillins Allergy Cannot Verified 03/28/17 09:00 Remember - Acknowledgements Anesthesia Type Planned: General Anesthesia Pt an Appropriate Candidate for the Planned Anesthesia: Yes Alternatives and Risks of Anesthesia Discussed w Pt/Guardian: Yes Pt/Guardian Understands and Agrees with Anesthesia Plan: Yes PreAnesthesia Questionnaire HEENT History: Reports: Allergic Rhinitis, Otitis Media, Sinusitis, Other (See Below) Other HEENT History: eustachian tube dysfunction, pharyngitis, has glasses and flipper, impacted cerumen Cardiovascular History: Reports: Afib, High Cholesterol, Hypertension Other Cardiovascular History: edema, palpitations Respiratory History: Reports: Other (See Below) Other Respiratory History: cough Gastrointestinal History: Reports: GERD, Hemorrhoids Genitourinary History: Reports: Urinary Incontinence, UTI, Recurrent Other Genitourinary History: vaginal itching, viral warts, stress urinary incontinence, fibroid, post menopausal bleeding, L breast cyst, vaginitis [employer] History: Reports: Other (See Below) Other OB/BYN History: vaginal dryness Musculoskeletal History: Reports: Other (See Below) Other Musculoskeletal History: restless leg syndrome, IT band syndrome, L knee pain, muscle cramps Neurological History: Reports: Migraines, Vertigo, Other (See Below) Psychiatric History: Reports: Anxiety, Depression Endocrine/Metabolic History: Reports: Hypothyroidism, Obesity/BMI 30+ Hematologic History: Reports: None Immunologic History: Reports: None Oncologic (Cancer) History: Reports: None Dermatologic History: Reports: Other (See Below) Other Dermatologic History: atopic dermatitis, back nevus, viral warts - Infectious Disease History Infectious Disease History: Reports: Chicken Pox, Measles - Past Surgical History Head Surgeries/Procedures: Reports: None HEENT Surgical History: Reports: Oral Surgery, Tonsillectomy Cardiovascular Surgical History: Reports: None Respiratory Surgical History: Reports: None GI Surgical History: Reports: None Female Surgical History: Reports: Tubal Ligation Endocrine Surgical History: Reports: None Neurological Surgical History: Reports: None Musculoskeletal Surgical History: Reports: None, Shoulder Surgery Oncologic Surgical History: Reports: None - SUBSTANCE USE Smoking Status *Q: Former Smoker Recreational Drug Use History: No - HOME MEDS Home Medications: Home Meds Carbidopa/Levodopa [Carbidopa-Levodopa 25-100] 1 tab PO BEDTIME 05/23/15 [ History] LORazepam [Ativan] 1 mg PO BID PRN 05/23/15 [History] Levothyroxine 75 mcg PO DAILY 05/23/15 [History] Venlafaxine HCl [Venlafaxine ER] 75 mg PO BEDTIME 05/23/15 [History] amLODIPine [Norvasc] 10 mg PO DAILY 05/23/15 [History] Fish Oil/Norton-3 Fatty Acids [Fish Oil 1,000 MG] 2 cap PO BID 08/02/16 [History] Hydrochlorothiazide 25 mg PO DAILY 08/02/16 [History] atorvaSTATin Calcium [Atorvastatin Calcium] 20 mg PO DAILY 03/27/17 [History] Lorcaserin HCl [Belviq Xr] 20 mg PO DAILY 07/29/17 [History] - CURRENT (IN HOUSE) MEDS Current Meds: Current Medications Lactated Ringer's (Ringers, Lactated) 1,000 mls @ 125 mls/hr IV ASDIRECTED TANESHA Stop: 07/30/17 23:00 Last Admin: 07/30/17 07:15 Dose: 125 mls/hr Lidocaine/Sodium Bicarbonate (Buffered Lidocaine 1% In Ns 8.4%) 0.25 ml IDERM ONETIME PRN PRN Reason: Prior to IV Start Stop: 07/30/17 18:00 Last Admin: 07/30/17 07:15 Dose: 0.25 ml Sodium Chloride (Saline Flush) 10 ml FLUSH ASDIRECTED PRN PRN Reason: Keep Vein Open Stop: 07/30/17 18:00 Discontinued Medications Bupivacaine HCl/Epinephrine Bitart (Marcaine 0.5%/Epinephrine 1:200,000) Confirm Administered Dose 50 ml .ROUTE .STK-MED ONE Stop: 07/30/17 06:59 Sodium Chloride (Normal Saline) Confirm Administered Dose 10 mls @ as directed .ROUTE .STK-MED ONE Stop: 07/30/17 07:00 Lidocaine/Epinephrine (Xylocaine 1% With Epinephrine 1:100,000) Confirm Administered Dose 20 ml .ROUTE .STK-MED ONE Stop: 07/30/17 06:59 Sodium Chloride (Normal Saline) Confirm Administered Dose 50 ml .ROUTE .STK-MED ONE Stop: 07/30/17 07:00
[2017-07-30] MEDS ORDERED: Ondansetron 4 MG/2 ML SDV ONE (08:08)
[2017-07-30] MEDS ORDERED: Lidocaine 1% 4 ML ONE (08:08)
[2017-07-30] MEDS ORDERED: Dexamethasone 4 MG/ML 5 ML MDV ONE (08:08)
[2017-07-30] MEDS ORDERED: Lactated Ringers 1,000 ML ONE (08:08)
[2017-07-30] MEDS ORDERED: Midazolam 1 MG/ML 2 ML SDV ONE (08:08)
[2017-07-30] MEDS ORDERED: Rocuronium 50 MG/5 ML Vial ONE (08:08)
[2017-07-30] MEDS ORDERED: ceFAZolin 1 GM Vial ONE (08:08)
[2017-07-30] MEDS ORDERED: Propofol 200 MG/20 ML SDV ONE (08:08)
[2017-07-30] MEDS ORDERED: fentaNYL 250 MCG/5 ML SDV ONE (08:08)
[2017-07-30] MEDS ORDERED: HYDROmorphone 1 MG/ML Syringe ONE (08:55)
[2017-07-30] MEDS ORDERED: Glycopyrrolate 0.2 MG/ML SDV ONE ×3 (09:06→09:29)
[2017-07-30] MEDS ORDERED: Ketorolac 30 MG/ML SDV ONE (09:12)
--- NOTE | 2017-07-30 09:20 | PCM.OPNOTE ---
- General Post-Op/Procedure Note Date of Surgery/Procedure: 07/30/17 Operative Procedure(s): Total vaginal hysterectomy bilateral salpingo- oophorectomy 35850 Pre Op Diagnosis: Postmenopausal bleeding Post-Op Diagnosis: Same plus fibroid uterus Anesthesia Technique: General ET Tube Primary Surgeon: Hesham Bangura Secondary Surgeon: Alen Bravo Anesthesia Provider: Kimberly Jones Relay Worker: Brayan Encinas (HANY) Reason Relay Worker Was Necessary: Difficulty of surgery, assist in retraction, decrease comorbidity and comortality Role of Relay Worker: Difficulty of surgery, assist in retraction, decrease comorbidity and comortality Fluid Replacement, Intraop: 1,500 Output, Urine Amount: 20 EBL in mLs: 50 Drain/Tube Comments:: None Complications: None Condition: Good Free Text/Narrative:: Patient was placed under general anesthesia with endotracheal intubation in the low dorsal lithotomy position and prepared and draped in a sterile fashion. SCDs in place and functioning prior surgery. Ancef 2 g given intravenously prior surgery. Uterus was grasped with double-tooth tenaculum and 20 mL of 0.25 % lidocaine with epinephrine injected in multiple confluent areas around the cervix. The uterus was circumscribed and utilizing moist opened up 4 x 4 tissue pushed cephalad posterior colpotomy was performed without difficulty. Utilizing the LigaSure the uterosacral cardinal ligament bundle on the left side was crossclamped activated and incised same procedure carried out in the right side. Proceeding in a pedicle fashion cephalad crossclamping activating incising until the triple pedicle was approximated. The fundus of the uterus and the drum posteriorly and crossclamping the triple pedicle with Mio clamps and incising the uterus was removed. Grasping the left tube and ovary and crossclamping the infundibulopelvic ligament with the LigaSure activating and incising hemostasis was normal. Same procedure carried out on the right side. The uterus cervix tubes and ovaries removed without difficulty. Examination of the areas of the infundibulopelvic ligament showed no bleeding. The posterior cuff was closed with a running locking suture of 0 Monocryl. Hemostasis was again evaluated and found no bleeding. The infundibulopelvic ligament area showed no bleeding bilaterally. Sponge, needle, sharp, packs and 4 x 4's were counted and correct 2. The anterior cuff was approximated to the posterior cuff utilizing 0 Monocryl running locking suture. Patient was transported postanesthesia care unit in satisfactory condition. No blood transfusions were required. I talked with the patient's and all questions answered voiced satisfaction. Prescription for Percocet 5/325 dispense 25 sig 1 by mouth every 6 hours when necessary pain.
[2017-07-30] MEDS ORDERED: Albuterol 6.7 GM Inhaler INH ONE (09:29)
[2017-07-30] MEDS ORDERED: Neostigmine Methylsulfate 10 MG/10 ML MDV ONE (09:29)
[2017-07-30] MEDS ORDERED: HYDROmorphone 0.5 MG/0.5 ML Syringe IVPUSH PRN (09:41)
[2017-07-30] MEDS ORDERED: fentaNYL 100 MCG/2 ML SDV IVPUSH PRN (09:41)
[2017-07-30] MEDS ORDERED: Haloperidol Lactate 5 MG/ML SDV IVPUSH PRN (09:41)
[2017-07-30] MEDS ORDERED: diphenhydrAMINE 50 MG/ML SDV IVPUSH PRN (09:41)
--- NOTE | 2017-07-30 09:41 | PCM.POSTAN ---
POST ANESTHESIA ASSESSMENT - MENTAL STATUS Mental Status: Alert, Oriented - VITAL SIGNS Pulse Rate: 83 SaO2: 98 Resp Rate: 12 Blood Pressure: 93/55 Temperature: 36.9 C - RESPIRATORY Respiratory Status: Respiratory Rate WNL, Airway Patent, O2 Saturation Stable, Supplemental Oxygen - CARDIOVASCULAR CV Status: Pulse Rate WNL, Blood Pressure Stable - GASTROINTESTINAL GI Status: No Symptoms - PAIN Pain Score: 0 - POST OP HYDRATION Hydration Status: Adequate & Stable
[2017-07-30] MEDS ORDERED: Albuterol 0.083% 2.5 MG/3 ML Neb Soln NEB ONE (09:45)
[2017-07-30] MEDS ORDERED: Phenylephrine 1% 10 MG/ML SDV ONE (10:14)
[2017-07-30] MEDS ORDERED: Acetaminophen/oxyCODONE 325-5 MG Tab PO PRN ×2 (10:43→17:30)
[2017-07-30] MEDS ORDERED: Ketorolac 30 MG/ML SDV IVPUSH PRN (17:30)
[2017-07-30] MEDS ORDERED: Ondansetron 4 MG Tab.DIS PO PRN (17:30)
--- NOTE | 2017-07-30 17:37 | PCM.SN ---
- Free Text/Narrative Note: Patient unable to void completely, placed on urecholine and will bladder scan and straight cath as needed. Acute postop urinacy retention. No heavy vaginal bleeding. Extended floor recovery.
[2017-07-30] MEDS: Docusate Sodium 100 MG Cap PO SCH (21:12)
[2017-07-31] MEDS: Docusate Sodium 100 MG Cap PO SCH (08:04)
[2017-07-31 08:06] VITALS: BP 127/74
--- NOTE | 2017-07-31 08:26 | PCM.DCSUM1 ---
Discharge Summary - Hospital Course Free Text/Narrative:: Patient kept overnight due to urinary retention. Resolved overnight. [facility] Post-Op/Procedure Note Patient Name: JONA RANDOLPH Date of : 1955 Patient Status: Surgical Day Care Attending Provider: Hesham Bangura Date: 07/30/17 09:16 Initialization Date: 07/30/17 09:16 - General Post-Op/Procedure Note Date of Surgery/Procedure: 07/30/17 Operative Procedure(s): Total vaginal hysterectomy bilateral salpingo- oophorectomy 63324 Pre Op Diagnosis: Postmenopausal bleeding Post-Op Diagnosis: Same plus fibroid uterus Anesthesia Technique: General ET Tube Primary Surgeon: Hesham Bangura Secondary Surgeon: Alen Bravo Anesthesia Provider: Kimberly Jones Commercial Loan Analyst: Brayan Encinas (PAS) Reason Commercial Loan Analyst Was Necessary: Difficulty of surgery, assist in retraction, decrease comorbidity and comortality Role of Commercial Loan Analyst: Difficulty of surgery, assist in retraction, decrease comorbidity and comortality Fluid Replacement, Intraop: 1,500 Output, Urine Amount: 20 EBL in mLs: 50 Drain/Tube Comments:: None Complications: None Condition: Good Free Text/Narrative:: Patient was placed under general anesthesia with endotracheal intubation in the low dorsal lithotomy position and prepared and draped in a sterile fashion. SCDs in place and functioning prior surgery. Ancef 2 g given intravenously prior surgery. Uterus was grasped with double-tooth tenaculum and 20 mL of 0.25 % lidocaine with epinephrine injected in multiple confluent areas around the cervix. The uterus was circumscribed and utilizing moist opened up 4 x 4 tissue pushed cephalad posterior colpotomy was performed without difficulty. Utilizing the LigaSure the uterosacral cardinal ligament bundle on the left side was crossclamped activated and incised same procedure carried out in the right side. Proceeding in a pedicle fashion cephalad crossclamping activating incising until the triple pedicle was approximated. The fundus of the uterus and the drum posteriorly and crossclamping the triple pedicle with Mio clamps and incising the uterus was removed. Grasping the left tube and ovary and crossclamping the infundibulopelvic ligament with the LigaSure activating and incising hemostasis was normal. Same procedure carried out on the right side. The uterus cervix tubes and ovaries removed without difficulty. Examination of the areas of the infundibulopelvic ligament showed no bleeding. The posterior cuff was closed with a running locking suture of 0 Monocryl. Hemostasis was again evaluated and found no bleeding. The infundibulopelvic ligament area showed no bleeding bilaterally. Sponge, needle, sharp, packs and 4 x 4's were counted and correct 2. The anterior cuff was approximated to the posterior cuff utilizing 0 Monocryl running locking suture. Patient was transported postanesthesia care unit in satisfactory condition. No blood transfusions were required. I talked with the patient's and all questions answered voiced satisfaction. Prescription for Percocet 5/325 dispense 25 sig 1 by mouth every 6 hours when necessary pain. HPI Initial Comments: Patient kept overnight due to urinary retention. Resolved overnight. [facility] Post-Op/Procedure Note Patient Name: JONA RANDOLPH Date of : 1955 Patient Status: Surgical Day Care Attending Provider: Hesham Bangura Date: 07/30/17 09:16 Initialization Date: 07/30/17 09:16 - General Post-Op/Procedure Note Date of Surgery/Procedure: 07/30/17 Operative Procedure(s): Total vaginal hysterectomy bilateral salpingo- oophorectomy 27636 Pre Op Diagnosis: Postmenopausal bleeding Post-Op Diagnosis: Same plus fibroid uterus Anesthesia Technique: General ET Tube Primary Surgeon: Hesham Bangura Secondary Surgeon: Alen Bravo Anesthesia Provider: Kimberly Jones Commercial Loan Analyst: Brayan Encinas (HANY) Reason Commercial Loan Analyst Was Necessary: Difficulty of surgery, assist in retraction, decrease comorbidity and comortality Role of Commercial Loan Analyst: Difficulty of surgery, assist in retraction, decrease comorbidity and comortality Fluid Replacement, Intraop: 1,500 Output, Urine Amount: 20 EBL in mLs: 50 Drain/Tube Comments:: None Complications: None Condition: Good Free Text/Narrative:: Patient was placed under general anesthesia with endotracheal intubation in the low dorsal lithotomy position and prepared and draped in a sterile fashion. SCDs in place and functioning prior surgery. Ancef 2 g given intravenously prior surgery. Uterus was grasped with double-tooth tenaculum and 20 mL of 0.25 % lidocaine with epinephrine injected in multiple confluent areas around the cervix. The uterus was circumscribed and utilizing moist opened up 4 x 4 tissue pushed cephalad posterior colpotomy was performed without difficulty. Utilizing the LigaSure the uterosacral cardinal ligament bundle on the left side was crossclamped activated and incised same procedure carried out in the right side. Proceeding in a pedicle fashion cephalad crossclamping activating incising until the triple pedicle was approximated. The fundus of the uterus and the drum posteriorly and crossclamping the triple pedicle with Mio clamps and incising the uterus was removed. Grasping the left tube and ovary and crossclamping the infundibulopelvic ligament with the LigaSure activating and incising hemostasis was normal. Same procedure carried out on the right side. The uterus cervix tubes and ovaries removed without difficulty. Examination of the areas of the infundibulopelvic ligament showed no bleeding. The posterior cuff was closed with a running locking suture of 0 Monocryl. Hemostasis was again evaluated and found no bleeding. The infundibulopelvic ligament area showed no bleeding bilaterally. Sponge, needle, sharp, packs and 4 x 4's were counted and correct 2. The anterior cuff was approximated to the posterior cuff utilizing 0 Monocryl running locking suture. Patient was transported postanesthesia care unit in satisfactory condition. No blood transfusions were required. I talked with the patient's and all questions answered voiced satisfaction. Prescription for Percocet 5/325 dispense 25 sig 1 by mouth every 6 hours when necessary pain. Brief History: Patient kept overnight due to urinary retention. Resolved overnight. [facility] . Post-Op/Procedure Note. Patient Name : JONA RANDOLPH AMedical Record Number: [id number]. Date of : 1954Patient Status: Surgical Day Care. Attending Provider: Hesham Bangura Number: [id number]. Date: 07/30/17 09:16Initialization Date: 09:16. - General Post-Op/Procedure Note. Date of Surgery/Procedure: . Operative Procedure(s): Total vaginal hysterectomy bilateral salpingo- oophorectomy 43404. Pre Op Diagnosis: Postmenopausal bleeding. Post-Op Diagnosis: Same plus fibroid uterus. Anesthesia Technique: General ET Tube. Primary Surgeon: Hesham Bangura. Secondary Surgeon: Alen Bravo. Anesthesia Provider: Kimberly Jones. Commercial Loan Analyst: Brayan Encinas (HANY). Reason Commercial Loan Analyst Was Necessary: Difficulty of surgery, assist in retraction, decrease comorbidity and comortality. Role of Commercial Loan Analyst: Difficulty of surgery, assist in retraction, decrease comorbidity and comortality. Fluid Replacement, Intraop : 1,500. Output, Urine Amount: 20. EBL in mLs: 50. Drain/Tube Comments:: None. Complications: None. Condition: Good. Free Text/Narrative:: Patient was placed under general anesthesia with endotracheal intubation in the low dorsal lithotomy position and prepared and draped in a sterile fashion. SCDs in place and functioning prior surgery. Ancef 2 g given intravenously prior surgery. Uterus was grasped with double-tooth tenaculum and 20 mL of 0.25% lidocaine with epinephrine injected in multiple confluent areas around the cervix. The uterus was circumscribed and utilizing moist opened up 4 x 4 tissue pushed cephalad posterior colpotomy was performed without difficulty. Utilizing the LigaSure the uterosacral cardinal ligament bundle on the left side was crossclamped activated and incised same procedure carried out in the right side. Proceeding in a pedicle fashion cephalad crossclamping activating incising until the triple pedicle was approximated. The fundus of the uterus and the drum posteriorly and crossclamping the triple pedicle with Mio clamps and incising the uterus was removed. Grasping the left tube and ovary and crossclamping the infundibulopelvic ligament with the LigaSure activating and incising hemostasis was normal. Same procedure carried out on the right side. The uterus cervix tubes and ovaries removed without difficulty. Examination of the areas of the infundibulopelvic ligament showed no bleeding. The posterior cuff was closed with a running locking suture of 0 Monocryl. Hemostasis was again evaluated and found no bleeding. The infundibulopelvic ligament area showed no bleeding bilaterally. Sponge, needle, sharp, packs and 4 x 4's were counted and correct 2. The anterior cuff was approximated to the posterior cuff utilizing 0 Monocryl running locking suture. Patient was transported postanesthesia care unit in satisfactory condition. No blood transfusions were required. I talked with the patient's and all questions answered voiced satisfaction. Prescription for Percocet 5/325 dispense 25 sig 1 by mouth every 6 hours when necessary pain. - Discharge Data Discharge Date: 07/31/17 Discharge Disposition: Home, Self-Care 01 Condition: Good - Discharge Diagnosis/Problem(s) (1) Fibroid uterus SNOMED Code(s): 87864102 ICD Code: D25.9 - LEIOMYOMA OF UTERUS, UNSPECIFIED Status: Acute Current Visit: Yes Qualifiers: Uterine leiomyoma location: subserous Qualified Code(s): D25.2 - Subserosal leiomyoma of uterus (2) Postmenopausal bleeding SNOMED Code(s): 14480846 ICD Code: N95.0 - POSTMENOPAUSAL BLEEDING Status: Acute Current Visit: No - Patient Summary/Data Operative Procedure(s) Performed: Total vaginal hysterectomy bilateral salpingo- oophorectomy 45695 Complications: postoperative acute urinary retention resolved overnight Consults: none Hospital Course: uneventful - Patient Instructions Diet: Regular Diet as Tolerated Driving: Do Not Drive (2 weeks) Showering/Bathing: May Shower, No Tub Bathing/Swimming (6 weeks) Notify Provider of: Fever, Increased Pain, Swelling and Redness, Drainage, Nausea and/or Vomiting - Discharge Plan Prescriptions/Med Rec: oxyCODONE HCl/Acetaminophen [Percocet 5-325 mg Tablet] 1 each PO Q6HR #25 tablet Ibuprofen [Motrin] 600 mg PO Q6H PRN #50 tab PRN Reason: Pain Home Medications: Home Meds Carbidopa/Levodopa [Carbidopa-Levodopa 25-100] 1 tab PO BEDTIME 05/23/15 [ History] LORazepam [Ativan] 1 mg PO BID PRN 05/23/15 [History] Levothyroxine 75 mcg PO DAILY 05/23/15 [History] Venlafaxine HCl [Venlafaxine ER] 75 mg PO BEDTIME 05/23/15 [History] amLODIPine [Norvasc] 10 mg PO DAILY 05/23/15 [History] Fish Oil/Larned-3 Fatty Acids [Fish Oil 1,000 MG] 2 cap PO BID 08/02/16 [History] Hydrochlorothiazide 25 mg PO DAILY 08/02/16 [History] atorvaSTATin Calcium [Atorvastatin Calcium] 20 mg PO DAILY 03/27/17 [History] Lorcaserin HCl [Belviq Xr] 20 mg PO DAILY 07/29/17 [History] Ibuprofen [Motrin] 600 mg PO Q6H PRN #50 tab 07/30/17 [Rx] oxyCODONE HCl/Acetaminophen [Percocet 5-325 mg Tablet] 1 each PO Q6HR #25 tablet 07/30/17 [Rx] Patient Handouts: Vaginal Hysterectomy, Care After Referrals: Hesham Bangura MD [Physician] - 08/27/17 3:15 pm (You will have a follow up appointment on August 27 at 3:[address] Bangura) - Discharge Summary/Plan Comment DC Time >30 min.: No - Patient Data Vitals - Most Recent: Last Vital Signs Temp 99.1 F 07/31/17 04:00 Pulse 80 07/31/17 08:00 Resp 20 07/31/17 08:00 BP 127/74 07/31/17 08:00 Pulse Ox 96 07/31/17 08:00 Weight - Most Recent: 183 lb I&O - Last 24 hours: Intake & Output 07/30/17 07/31/17 07/31/17 22:59 06:59 14:59 Intake Total 1850 600 Output Total 2400 1000 Balance -550 -400 Lab Results - Last 24 hrs: Laboratory Results - last 24 hr 07/30/17 Range/Units 07:15 Blood Type A POSITIVE Gel Antibody Screen Negative Med Orders - Current: Current Medications Bethanechol Chloride (Urecholine) 10 mg PO Q6H [facility] Stop: 07/31/17 18:01 Last Admin: 07/31/17 05:37 Dose: 10 mg Docusate Sodium (Colace) 100 mg PO BID [facility] Last Admin: 07/31/17 08:04 Dose: 100 mg Ketorolac Tromethamine (Toradol) 30 mg IVPUSH Q8H PRN PRN Reason: Pain (moderate 4-6) Stop: 08/04/17 17:33 Ondansetron HCl (Zofran Odt) 4 mg PO Q6H PRN PRN Reason: Nausea/Vomiting Oxycodone/Acetaminophen (Percocet 325-5 Mg) 1 tab PO Q4H PRN PRN Reason: Pain (moderate 4-6) Last Admin: 07/30/17 18:50 Dose: 1 tab Discontinued Medications Albuterol (Proventil Hfa) Confirm Administered Dose 6.7 gm INH .STK-MED ONE Stop: 07/30/17 09:30 Albuterol (Proventil Neb Soln) 2.5 mg NEB ONETIME ONE Stop: 07/30/17 09:46 Bethanechol Chloride (Urecholine) 10 mg PO ONETIME ONE Stop: 07/30/17 13:24 Last Admin: 07/30/17 13:45 Dose: 10 mg Bethanechol Chloride (Urecholine) 10 mg PO Q1H TANESHA Stop: 07/30/17 18:46 Last Admin: 07/30/17 18:47 Dose: 10 mg Bupivacaine HCl/Epinephrine Bitart (Marcaine 0.5%/Epinephrine 1:200,000) Confirm Administered Dose 50 ml .ROUTE .STK-MED ONE Stop: 07/30/17 06:59 Cefazolin Sodium (Ancef) Confirm Administered Dose 2 gm .ROUTE .STK-MED ONE Stop: 07/30/17 08:09 Dexamethasone (Dexamethasone) Confirm Administered Dose 20 mg .ROUTE .STK-MED ONE Stop: 07/30/17 08:09 Diphenhydramine HCl (Benadryl) 25 mg IVPUSH Q6H PRN PRN Reason: Pruritis Stop: 07/30/17 18:00 Fentanyl (Sublimaze) Confirm Administered Dose 250 mcg .ROUTE .STK-MED ONE Stop: 07/30/17 08:09 Fentanyl (Sublimaze) 50 mcg IVPUSH Q5M PRN PRN Reason: Pain Stop: 07/30/17 18:00 Glycopyrrolate (Robinul) Confirm Administered Dose 0.2 mg .ROUTE .STK-MED ONE Stop: 07/30/17 09:07 Glycopyrrolate (Robinul) Confirm Administered Dose 0.4 mg .ROUTE .STK-MED ONE Stop: 07/30/17 09:30 Glycopyrrolate (Robinul) Confirm Administered Dose 0.2 mg .ROUTE .STK-MED ONE Stop: 07/30/17 09:30 Haloperidol Lactate (Haldol) 1 mg IVPUSH ONETIME PRN PRN Reason: PERSISTENT NAUSEA Stop: 07/30/17 18:00 Hydromorphone HCl (Dilaudid) Confirm Administered Dose 1 mg .ROUTE .STK-MED ONE Stop: 07/30/17 08:56 Hydromorphone HCl (Dilaudid) 0.5 mg IVPUSH ASDIRECTED PRN PRN Reason: Severe Pain Stop: 07/30/17 18:00 Lactated Ringer's (Ringers, Lactated) 1,000 mls @ 125 mls/hr IV ASDIRECTED TANESHA Stop: 07/30/17 23:00 Last Admin: 07/30/17 13:11 Dose: 125 mls/hr Sodium Chloride (Normal Saline) Confirm Administered Dose 10 mls @ as directed .ROUTE .STK-MED ONE Stop: 07/30/17 07:00 Lactated Ringer's (Ringers, Lactated) Confirm Administered Dose 1,000 mls @ as directed .ROUTE .STK-MED ONE Stop: 07/30/17 08:09 Lidocaine HCl (Xylocaine-Mpf 1%) Confirm Administered Dose 4 mls @ as directed .ROUTE .STK-MED ONE Stop: 07/30/17 08:09 Ketorolac Tromethamine (Toradol) Confirm Administered Dose 30 mg .ROUTE .STK- MED ONE Stop: 07/30/17 09:13 Lidocaine/Epinephrine (Xylocaine 1% With Epinephrine 1:100,000) Confirm Administered Dose 20 ml .ROUTE .STK-MED ONE Stop: 07/30/17 06:59 Last Admin: 07/30/17 08:39 Dose: 5 ml Lidocaine/Sodium Bicarbonate (Buffered Lidocaine 1% In Ns 8.4%) 0.25 ml IDERM ONETIME PRN PRN Reason: Prior to IV Start Stop: 07/30/17 18:00 Last Admin: 07/30/17 07:15 Dose: 0.25 ml Midazolam HCl (Versed 1 Mg/Ml) Confirm Administered Dose 2 mg .ROUTE .STK-MED ONE Stop: 07/30/17 08:09 Neostigmine Methylsulfate (Neostigmine Methylsulfate) Confirm Administered Dose 10 mg .ROUTE .STK-MED ONE Stop: 07/30/17 09:30 Ondansetron HCl (Zofran) Confirm Administered Dose 4 mg .ROUTE .STK-MED ONE Stop: 07/30/17 08:09 Oxycodone/Acetaminophen (Percocet 325-5 Mg) 1 tab PO Q6H PRN PRN Reason: Pain Stop: 07/30/17 16:00 Last Admin: 07/30/17 10:51 Dose: 1 tab Phenylephrine HCl (Adonay-Synephrine) Confirm Administered Dose 10 mg .ROUTE .STK- MED ONE Stop: 07/30/17 10:15 Propofol (Diprivan 20 Ml) Confirm Administered Dose 400 mg .ROUTE .STK-MED ONE Stop: 07/30/17 08:09 Rocuronium [place] (Zemuron) Confirm Administered Dose 50 mg .ROUTE .STK-MED ONE Stop: 07/30/17 08:09 Sodium Chloride (Saline Flush) 10 ml FLUSH ASDIRECTED PRN PRN Reason: Keep Vein Open Stop: 07/30/17 18:00 Sodium Chloride (Normal Saline) Confirm Administered Dose 50 ml .ROUTE .STK-MED ONE Stop: 07/30/17 07:00 Last Admin: 07/30/17 08:39 Dose: 15 ml *Q Meaningful Use (DIS) - VTE *Q VTE Criteria *Q: - Stroke *Q Stroke Criteria *Q: - AMI *Q AMI Criteria *Q:
== END 2017-07-31 09:15 | disposition home or self-care (01) ==
LOC: JD.SDS 06:39
PROVIDERS: ATTEND Obstetrics & Gynecology
DX: N87.9 Dysplasia of cervix uteri, unspecified (principal); D25.9 Leiomyoma of uterus, unspecified; N83.8 Other noninflammatory disorders of ovary, fallopian tube and broad ligament; F41.9 Anxiety disorder, unspecified; F32.9 Major depressive disorder, single episode, unspecified; I10 Essential (primary) hypertension; E78.00 Pure hypercholesterolemia, unspecified; E78.1 Pure hyperglyceridemia; E87.6 Hypokalemia; E03.9 Hypothyroidism, unspecified; E66.9 Obesity, unspecified; Z88.0 Allergy status to penicillin; Z88.8 Allergy status to other drugs, medicaments and biological substances; Z79.899 Other long term (current) drug therapy; Z87.891 Personal history of nicotine dependence
CPT/HCPCS: 36415; 51798; 58262; 80053; 86850; 86900; 86901; A9270; J0690; J1100; J1170; J1885; J2250; J2370; J2405; J2710; J3010; J3490; J7120; 00944; J2704

== ENCOUNTER 2018-10-09 09:18 | Day surgery (SDC) | payer BC ==
[~2018-10-09 09:18] MED LIST changes: +EPINEPHrine 1 MG/ML 30 ML MDV ONE; +EPINEPHrine 1 MG/ML SDV ONE; +Lactated Ringers 1,000 ML IV SCH; +Lidocaine 1% 4 ML ONE; +Ropivacaine 0.5% 5 MG/ML 30 ML SDV ONE
--- NOTE | 2018-10-09 09:53 | PCM.PREANE ---
Preanesthetic Assessment - Anesthesia/Transfusion/Family Hx Anesthesia History: Prior Anesthesia Without Reaction Family History of Anesthesia Reaction: No Transfusion History: No Prior Transfusion(s) Intubation History: Unknown - Review of Systems General: No Symptoms Pulmonary: No Symptoms Cardiovascular: Dyspnea on Exertion Gastrointestinal: No Symptoms Neurological: No Symptoms Other: Reports: Thyroid Problems - Physical Assessment NPO Status Date: 10/08/18 NPO Status Time: 00:00 Pulse: 92 O2 Sat by Pulse Oximetry: 96 Respiratory Rate: 16 Blood Pressure: 154/87 Temperature: 36.7 C Height: 1.55 m Weight: 84.4 kg ASA Class: 3 Mental Status: Alert & Oriented x3 Dentition: Reports: Partial (top front) Thyro-Mental Finger Breadths: 2 Mouth Opening Finger Breadths: 2 ROM/Head Extension: Full Lungs: Clear to Auscultation, Normal Respiratory Effort Cardiovascular: Regular Rate, Regular Rhythm - Lab Values: Laboratory Last Values MRSA (PCR) Negative 09/24/18 14:50 - Imaging/EKG Impressions: SR on chart rate 88 - Allergies Allergies/Adverse Reactions: Allergies Allergy/AdvReac Type Severity Reaction Status Date / Time lisinopril Allergy Cannot Verified 10/08/18 15:23 Remember Penicillins Allergy Cannot Verified 10/08/18 15:23 Remember - Anesthesia Plan Pre-Op Medication Ordered: None - Acknowledgements Anesthesia Type Planned: General Anesthesia, Regional Block (right interscalene block for post -op pain control) Pt an Appropriate Candidate for the Planned Anesthesia: Yes Alternatives and Risks of Anesthesia Discussed w Pt/Guardian: Yes Pt/Guardian Understands and Agrees with Anesthesia Plan: Yes PreAnesthesia Questionnaire HEENT History: Reports: Allergic Rhinitis, Otitis Media, Other (See Below) Other HEENT History: eustachian tube dysfunction, pharyngitis, has glasses and flipper Cardiovascular History: Reports: High Cholesterol Other Cardiovascular History: heartratte today is ST-regular and strong 9-2-17 Respiratory History: Other Respiratory History: cough Gastrointestinal History: Reports: GERD, Hemorrhoids Genitourinary History: Reports: Urinary Incontinence, UTI, Recurrent Other Genitourinary History: vaginal itching, viral warts, stress urinary incontinence, fibroid, post menopausal bleeding, L breast cyst, vaginitis PCU RN History: Reports: Other (See Below) Other OB/BYN History: vaginal dryness Musculoskeletal History: Reports: Other (See Below) Other Musculoskeletal History: restless leg syndrome, IT band syndrome, L knee pain, muscle cramps Neurological History: Reports: Migraines, Vertigo, Other (See Below) Other Neuro History: dizzienss, vertigo Psychiatric History: Reports: Anxiety, Depression Endocrine/Metabolic History: Reports: Hypothyroidism, Obesity/BMI 30+ Hematologic History: Reports: None Immunologic History: Reports: None Oncologic (Cancer) History: Reports: None Dermatologic History: Reports: Other (See Below) Other Dermatologic History: atopic dermatitis, back nevus, viral warts - Infectious Disease History Infectious Disease History: Reports: Chicken Pox, Measles - Past Surgical History Head Surgeries/Procedures: Reports: None HEENT Surgical History: Reports: Oral Surgery, Tonsillectomy Cardiovascular Surgical History: Reports: None Respiratory Surgical History: Reports: None GI Surgical History: Reports: None Female Surgical History: Reports: Tubal Ligation Endocrine Surgical History: Reports: None Neurological Surgical History: Reports: None Musculoskeletal Surgical History: Reports: None, Hip Replacement Oncologic Surgical History: Reports: None - SUBSTANCE USE Smoking Status *Q: Former Smoker Tobacco Use Within Last Twelve Months: No Second Hand Smoke Exposure: No Days Per Week of Alcohol Use: 1 Number of Drinks Per Day: 0 Total Drinks Per Week: 0 Recreational Drug Use History: No - HOME MEDS Home Medications: Home Meds Carbidopa/Levodopa [Carbidopa-Levodopa 25-100] 1 tab PO BEDTIME 05/23/15 [ History] LORazepam [Ativan] 1 mg PO BID PRN 05/23/15 [History] Levothyroxine 75 mcg PO DAILY 05/23/15 [History] amLODIPine [Norvasc] 10 mg PO DAILY 05/23/15 [History] Hydrochlorothiazide 25 mg PO DAILY 08/02/16 [History] atorvaSTATin Calcium [Atorvastatin Calcium] 20 mg PO DAILY 03/27/17 [History] Levothyroxine 25 mcg PO DAILY #30 tablet 03/13/18 [Rx] Omeprazole 20 mg PO DAILY 10/08/18 [History] Potassium Chloride 20 meq PO DAILY 10/08/18 [History] Venlafaxine HCl [Venlafaxine ER] 150 mg PO DAILY 10/08/18 [History] Acetaminophen/HYDROcodone [[place] 325-5 MG] 1 - 2 tab PO Q6H PRN #40 tablet 10/09 [Rx] Cyclobenzaprine [Flexeril] 10 mg PO Q8H PRN #40 tab 10/09/18 [Rx] - CURRENT (IN HOUSE) MEDS Current Meds: Current Medications Lactated Ringer's (Ringers, Lactated) 1,000 mls @ 125 mls/hr IV ASDIRECTED TANESHA Stop: 10/09/18 23:00 Lidocaine/Sodium Bicarbonate (Buffered Lidocaine 1% In Ns 8.4%) 0.25 ml IDERM ONETIME PRN PRN Reason: Prior to IV Start Stop: 10/09/18 18:00 Sodium Chloride (Saline Flush) 10 ml FLUSH ASDIRECTED PRN PRN Reason: Keep Vein Open Stop: 10/09/18 18:00 Discontinued Medications Epinephrine HCl (Adrenalin) 3 mg .XX ONETIME ONE Stop: 10/09/18 08:01 Epinephrine HCl (Adrenalin) Confirm Administered Dose 1 mg .ROUTE .STK-MED ONE Stop: 10/09/18 07:16 Lidocaine HCl (Xylocaine-Mpf 1%) Confirm Administered Dose 4 mls @ as directed .ROUTE .STK-MED ONE Stop: 10/09/18 07:16 Ropivacaine (Naropin 0.5%) Confirm Administered Dose 30 ml .ROUTE .STK-MED ONE Stop: 10/09/18 07:16
[2018-10-09] MEDS ORDERED: Rocuronium 50 MG/5 ML Vial ONE (10:09)
[2018-10-09] MEDS ORDERED: Ondansetron 4 MG/2 ML SDV ONE (10:09)
[2018-10-09] MEDS ORDERED: Lidocaine 1% 4 ML ONE (10:10)
[2018-10-09] MEDS ORDERED: Midazolam 1 MG/ML 2 ML SDV ONE (10:10)
[2018-10-09] MEDS ORDERED: Propofol 200 MG/20 ML SDV ONE (10:10)
[2018-10-09] MEDS ORDERED: fentaNYL 100 MCG/2 ML SDV ONE (10:10)
[2018-10-09] MEDS ORDERED: Bupivacaine 0.25% 10 ML SDV ONE (10:17)
--- NOTE | 2018-10-09 10:47 | PCM.SN ---
- Free Text/Narrative Note: Interscalene nerve block note Date: 10/09/2018 Start: 1018 Time Out: 1018 Stop: 1035 Procedure: Right interscalene block under US guidance for postoperative pain control Patient chart reviewed, risk/benefits discussed with patient, consent obtained. Patient positioned supine, monitors/alarms on, oxygen placed via nasal cannula at 2 LPM. Right shoulder prepped with chloraprep x2. Sterile drapes placed with aseptic technique. Under US guidance, right subclavian artery visualized along with the brachial plexus. Plexus followed cephalad up to C6 cricoid level, and area localized with 2mls of 1% lidocaine. 22gauge 2 inch stimiplex needle inserted under US and guided to brachial plexus C5-C6 trunks with 0.44mV with stimulation of biceps noted. Stimulation abolished at 0.4mVs. 1ml of Normal Saline injected with loss of stimulation. Incremental injection of 5mls with negative aspiration prior to each injection of 0.5% ropivacaine with 1:200,000 epinephrine. Total volume=30mls. Refer to nurses notes for vital signs and medication administration. Harpreet Andrade CRNA
[2018-10-09] MEDS ORDERED: fentaNYL 250 MCG/5 ML SDV ONE ×2 (11:32→12:45)
[2018-10-09] MEDS ORDERED: ceFAZolin 1 GM Vial ONE (11:35)
[2018-10-09] MEDS ORDERED: Lactated Ringers 1,000 ML ONE (11:56)
--- NOTE | 2018-10-09 13:17 | PCM.POSTAN ---
POST ANESTHESIA ASSESSMENT - MENTAL STATUS Mental Status: Alert, Oriented - VITAL SIGNS Pulse Rate: 106 SaO2: 91 Resp Rate: 17 Blood Pressure: 165/91 Temperature: 36.4 C - RESPIRATORY Respiratory Status: Respiratory Rate WNL, Airway Patent, O2 Saturation Stable, Supplemental Oxygen - CARDIOVASCULAR CV Status: Pulse Rate WNL, Blood Pressure Stable - GASTROINTESTINAL GI Status: No Symptoms - PAIN Pain Score: 0 - POST OP HYDRATION Hydration Status: Adequate & Stable - OBSERVATIONS Free Text/Narrative:: no anesthesia complications noted
[2018-10-09 15:04] VITALS: BP 139/71
--- NOTE | 2018-10-13 17:11 | PCM.OPNOTE ---
- General Post-Op/Procedure Note Date of Surgery/Procedure: 10/09/18 Operative Procedure(s): right shoulder video arthroscopy with rotator cuff repair, subacromial decompression and extensive debridement Pre Op Diagnosis: right shoulder rotator cuff tear with biceps tendinopathy and impingement Post-Op Diagnosis: Same Anesthesia Technique: General ET Tube, Regional Block Primary Surgeon: Chapo Steiner Anesthesia Provider: Harpreet Andrade Industrial Roofer Helper: Yoanna Lei EBTapan in mLs: 5 Complications: None Condition: Good
--- NOTE | 2018-10-14 14:08 | OR ---
DATE OF OPERATION: 10/09/2018 SURGEON: Chapo Steiner MD OPERATION PERFORMED: Right shoulder video arthroscopy with rotator cuff repair, subacromial decompression, and extensive debridement with biceps tenotomy. PREOPERATIVE DIAGNOSIS: Right shoulder rotator cuff tear with biceps tendinopathy and impingement. POSTOPERATIVE DIAGNOSIS: Right shoulder rotator cuff tear with biceps tendinopathy and impingement. ANESTHESIA: General endotracheal intubation with regional interscalene block. ANESTHESIA PROVIDER: Harpreet Andrade CRNA. MECHANICAL MANAGER: Yoanna Lei PA-C. ESTIMATED BLOOD LOSS: Less than 5 mL. COMPLICATIONS: None. CONDITION: Stable. DESCRIPTION OF PROCEDURE: The patient was identified in the preoperative holding area. Proper site was marked and identified by the surgeon. The patient was taken back to the operating theater where after adequate anesthesia, the patient was placed in the lazy left lateral decubitus position. A wedge was placed posteriorly. All bony prominences were well padded. The patient was secured to the table. At this time, right upper extremity was sterilely prepped and draped in the usual sterile fashion. OR time-out was performed. The patient received 2 g IV Ancef and 12 pounds traction was applied to the right upper extremity. Standard posterior incision was made. Scope trocar was introduced through glenohumeral joint. With the use of a spinal needle [id number], an anterior portal was then created. The patient was noted to have significant biceps fraying as well as biceps tendinopathy. At this time, a biceps tenotomy was performed. Significant debridement was done of the superior labrum as well as any synovitis noted in the intra-articular space. The patient was noted to have grade 1 chondromalacia of the glenoid. Otherwise, no significant chondromalacia was noted. The patient was noted to have full-thickness rotator cuff tear to the anterior portion of the supraspinatus. Once this was completed, attention was turned to the subacromial space. The patient was noted to have significant bursitis in the subacromial space. A significant extensive debridement was done as well as debridement of the CA ligament and then at this time, the patient was noted to have type 2 acromion and subacromial decompression was performed back to a smooth border with the posterior rim of the acromion. The patient's full- thickness tear of the anterior portion of supraspinatus was identified. A good bony bleeding bed was then used with 4-0 full radius resector and a cautery. Once this was done, a 4.75 mm Arthrex SwiveLock anchor was placed medially. Two limbs of FiberTape as well as 4 limbs of FiberWire were then passed. The 4 limbs of FiberWire were then tied for medial row repair. One suture limb of each of the knot stacks was then brought out along with the 2 limbs of the FiberTape. Another 4.75 mm Arthrex SwiveLock anchor was placed laterally for double row repair. Tension was applied and the second anchor was placed. The patient was noted to have adequate watertight repair with no dog ears noted of the repair. At this time, excess saline was drained from the subacromial space. 3-0 nylon suture was used for closure of the skin. The patient was placed in sterile soft dressing and a pillow sling and sent to PACU in stable condition. RICHELLE /[id number]
== END 2018-10-09 15:03 | disposition home or self-care (01) ==
LOC: JD.SDS 09:18
PROVIDERS: ATTEND Orthopaedic Surgery
DX: M75.101 Unspecified rotator cuff tear or rupture of right shoulder, not specified as traumatic (principal); M75.21 Bicipital tendinitis, right shoulder; M75.41 Impingement syndrome of right shoulder; I10 Essential (primary) hypertension; E78.00 Pure hypercholesterolemia, unspecified; E78.5 Hyperlipidemia, unspecified; E03.9 Hypothyroidism, unspecified; E87.6 Hypokalemia; F32.9 Major depressive disorder, single episode, unspecified; F41.9 Anxiety disorder, unspecified; R60.9 Edema, unspecified; K21.9 Gastro-esophageal reflux disease without esophagitis; G25.81 Restless legs syndrome; E66.9 Obesity, unspecified; Z68.36 Body mass index [BMI] 36.0-36.9, adult; Z87.891 Personal history of nicotine dependence; Z79.899 Other long term (current) drug therapy; Z88.0 Allergy status to penicillin; Z88.8 Allergy status to other drugs, medicaments and biological substances
CPT/HCPCS: 29823; 29826; 29827; 29828; 87641; C1713; J0171; J0690; J2001; J2250; J2405; J2704; J2795; J3010; J7120; 01630; 64415; J3490

== ENCOUNTER 2019-04-23 06:09 | Inpatient (IN) | payer BC ==
[~2019-04-23 06:09] MED LIST changes: +Acetaminophen 325 MG Tab PO SCH; +Bisacodyl 5 MG Tab PO PRN; +Cyclobenzaprine 10 MG Tab PO PRN; -EPINEPHrine 1 MG/ML 30 ML MDV ONE; -EPINEPHrine 1 MG/ML SDV ONE; -Lidocaine 1% 4 ML ONE; +Magnesium Hydroxide 400 MG/5 ML Susp 30 ML Cup PO PRN; +Morphine 2 MG/ML Syringe IVPUSH PRN; +Naloxone 0.4 MG/ML SDV IVPUSH PRN; +Ondansetron 4 MG/2 ML SDV IVPUSH PRN; +Pregabalin 25 MG Cap PO SCH; -Ropivacaine 0.5% 5 MG/ML 30 ML SDV ONE; +Sennosides 8.6 MG Tab PO PRN; +oxyCODONE ER 10 MG TAB.ER PO SCH
[2019-04-23] MEDS ORDERED: Ropivacaine 0.5% 5 MG/ML 30 ML SDV ONE ×2 (06:51→07:15)
[2019-04-23] MEDS ORDERED: EPINEPHrine 1 MG/ML SDV ONE ×2 (06:51→07:14)
[2019-04-23] MEDS ORDERED: Midazolam 1 MG/ML 2 ML SDV ONE (06:55)
[2019-04-23] MEDS ORDERED: fentaNYL 100 MCG/2 ML SDV ONE (06:55)
[2019-04-23] MEDS ORDERED: Propofol 200 MG/20 ML SDV ONE (06:55)
[2019-04-23] MEDS ORDERED: Lidocaine 1% 4 ML ONE (06:57)
[2019-04-23] MEDS ORDERED: ceFAZolin 1 GM Vial ONE (07:16)
[2019-04-23] MEDS ORDERED: Dexamethasone 4 MG/ML 5 ML MDV ONE (07:27)
[2019-04-23] MEDS ORDERED: Ondansetron 4 MG/2 ML SDV ONE (07:27)
[2019-04-23] MEDS ORDERED: Lactated Ringers 1,000 ML ONE (07:34)
[2019-04-23] MEDS: Iodine/Sodium Iodide 2% Tincture 30 ML Bottle ONE ×2 (07:51→08:04)
[2019-04-23] MEDS: ceFAZolin 1 GM Vial ONE ×2 (07:52→08:10)
[2019-04-23] MEDS: Morphine 8 MG, EPINEPHrine 0.3 MG, Cefuroxime 750 MG, Ketorolac 30 MG, Sodium Chloride ... ONE ×15 (07:53→20:52)
[2019-04-23] MEDS: Bupivacaine 0.25% 10 ML SDV ONE ×4 (07:54→08:45)
[2019-04-23] MEDS: Vancomycin 1 GM SDV ONE ×2 (07:55→08:18)
[2019-04-23] MEDS: Triamcinolone Acetonide 40 MG/ML 1 ML MDV ONE ×2 (07:56→08:45)
[2019-04-23] MEDS ORDERED: Ketorolac 30 MG/ML SDV ONE (08:05)
[2019-04-23] MEDS ORDERED: fentaNYL 100 MCG/2 ML SDV IVPUSH PRN (08:11)
[2019-04-23] MEDS ORDERED: HYDROmorphone 0.5 MG/0.5 ML Syringe IVPUSH PRN (08:11)
[2019-04-23] MEDS ORDERED: Ondansetron 4 MG/2 ML SDV IVPUSH PRN (08:11)
--- NOTE | 2019-04-23 08:11 | PCM.PREANE ---
Preanesthetic Assessment - Anesthesia/Transfusion/Family Hx Anesthesia History: Prior Anesthesia Without Reaction Family History of Anesthesia Reaction: No Transfusion History: No Prior Transfusion(s) Intubation History: Unknown - Review of Systems General: No Symptoms Pulmonary: No Symptoms Cardiovascular: No Symptoms, Dyspnea on Exertion (4 MET capacity) Gastrointestinal: No Symptoms Neurological: Headache (Optical Migraines) Other: Reports: Depression, Anxiety - Physical Assessment NPO Status Date: 04/22/19 NPO Status Time: 19:30 Vital Signs: Last Vital Signs Temp 36.2 C 04/23/19 06:20 Pulse 82 04/23/19 06:20 Resp 16 04/23/19 06:20 BP 141/90 H 04/23/19 06:20 Pulse Ox 96 04/23/19 06:20 Height: 1.55 m Weight: 81.193 kg ASA Class: 2 Mental Status: Alert & Oriented x3 Airway Class: Mallampati = 2 Dentition: Reports: Normal Dentition Thyro-Mental Finger Breadths: 3 Mouth Opening Finger Breadths: 3 ROM/Head Extension: Full Lungs: Clear to Auscultation, Normal Respiratory Effort Cardiovascular: Regular Rate, Regular Rhythm - Imaging/EKG Impressions: Sinus Rhythm rate of 80bpm - Allergies Allergies/Adverse Reactions: Allergies Allergy/AdvReac Type Severity Reaction Status Date / Time lisinopril Allergy Cannot Verified 04/22/19 16:59 Remember Penicillins Allergy Cannot Verified 04/22/19 16:59 Remember - Anesthesia Plan Pre-Op Medication Ordered: Anxiolytic - Acknowledgements Anesthesia Type Planned: Spinal Pt an Appropriate Candidate for the Planned Anesthesia: Yes Alternatives and Risks of Anesthesia Discussed w Pt/Guardian: Yes Pt/Guardian Understands and Agrees with Anesthesia Plan: Yes PreAnesthesia Questionnaire HEENT History: Reports: Allergic Rhinitis, Otitis Media, Other (See Below) Other HEENT History: eustachian tube dysfunction, pharyngitis, has glasses and flipper, blurred vision, cerumen impaction, pharyngitis Cardiovascular History: Reports: High Cholesterol, Hypertension Other Cardiovascular History: palpitations Respiratory History: Reports: None Other Respiratory History: cough Gastrointestinal History: Reports: GERD, Hemorrhoids Genitourinary History: Reports: Urinary Incontinence, UTI, Recurrent Other Genitourinary History: vaginal itching, viral warts, stress urinary incontinence, fibroid, post menopausal bleeding, L breast cyst, vaginitis MOLD MECHANIC History: Reports: Other (See Below) Other OB/BYN History: vaginal dryness, postmenopausal bleeding, left breast cyst. senile atrophic vagintits, uterine lesion, vaginal itching Musculoskeletal History: Reports: Other (See Below) Other Musculoskeletal History: restless leg syndrome, IT band syndrome, L knee pain, muscle cramps Neurological History: Reports: Migraines, Vertigo, Other (See Below) Other Neuro History: dizzienss, vertigo Psychiatric History: Reports: Anxiety, Depression Endocrine/Metabolic History: Reports: Hypothyroidism, Obesity/BMI 30+ Hematologic History: Reports: None Immunologic History: Reports: None Oncologic (Cancer) History: Reports: None Dermatologic History: Reports: Other (See Below) Other Dermatologic History: atopic dermatitis, back nevus, viral warts - Infectious Disease History Infectious Disease History: Reports: Chicken Pox, Measles - Past Surgical History Head Surgeries/Procedures: Reports: None HEENT Surgical History: Reports: Oral Surgery, Tonsillectomy Cardiovascular Surgical History: Reports: None Respiratory Surgical History: Reports: None GI Surgical History: Reports: Colonoscopy Female Surgical History: Reports: Hysterectomy, Tubal Ligation Male Surgical History: Reports: None Endocrine Surgical History: Reports: None Neurological Surgical History: Reports: None Musculoskeletal Surgical History: Reports: None, Shoulder Surgery Oncologic Surgical History: Reports: None - SUBSTANCE USE Smoking Status *Q: Former Smoker Recreational Drug Use History: No - HOME MEDS Home Medications: Home Meds Carbidopa/Levodopa [Carbidopa-Levodopa 25-100] 1 tab PO BEDTIME 05/23/15 [ History] LORazepam [Ativan] 1 mg PO BID PRN 05/23/15 [History] Levothyroxine 75 mcg PO DAILY 05/23/15 [History] amLODIPine [Norvasc] 10 mg PO DAILY 05/23/15 [History] Hydrochlorothiazide 25 mg PO DAILY 08/02/16 [History] atorvaSTATin Calcium [Atorvastatin Calcium] 20 mg PO DAILY 03/27/17 [History] Levothyroxine 25 mcg PO DAILY #30 tablet 03/13/18 [Rx] Omeprazole 20 mg PO DAILY 10/08/18 [History] Venlafaxine HCl [Venlafaxine ER] 150 mg PO DAILY 10/08/18 [History] Cholecalciferol (Vitamin D3) [Vitamin D3] 5,000 unit PO DAILY 04/22/19 [History] Lactobacillus Combo No.11 [Probiotic] 1 cap PO DAILY 04/22/19 [History] Lorcaserin HCl [Belviq Xr] 20 mg PO DAILY 04/22/19 [History] Potassium Chloride [Klor-Con M20] 20 meq PO DAILY 04/22/19 [History] Prevagen 1 tab PO DAILY 04/22/19 [History] - CURRENT (IN HOUSE) MEDS Current Meds: Current Medications Acetaminophen (Tylenol) 975 mg PO ONETIME [facility] Stop: 04/23/19 14:00 Last Admin: 04/23/19 06:37 Dose: 975 mg Aspirin (Ecotrin) 325 mg PO BID TANESHA Bisacodyl (Dulcolax) 5 mg PO DAILY PRN PRN Reason: Constipation Cyclobenzaprine HCl (Flexeril) 10 mg PO TID PRN PRN Reason: Spasms Docusate Sodium (Colace) 100 mg PO BID TANESHA Famotidine (Pepcid) 20 mg PO Q12H [facility] Lactated Ringer's (Ringers, Lactated) 1,000 mls @ 125 mls/hr IV ASDIRECTED [facility] Stop: 04/23/19 23:00 Last Admin: 04/23/19 06:50 Dose: 125 mls/hr Cefazolin Sodium/Dextrose 2 gm (/ Premix) 50 mls @ 100 mls/hr IV Q8H [facility] Stop: 04/23/19 22:29 Ketorolac Tromethamine (Toradol) 15 mg IVPUSH Q6H PRN PRN Reason: Pain Lidocaine/Sodium Bicarbonate (Buffered Lidocaine 1% In Ns 8.4%) 0.25 ml IDERM ONETIME PRN PRN Reason: Prior to IV Start Stop: 04/23/19 18:00 Last Admin: 04/23/19 06:49 Dose: 0.25 ml Magnesium Hydroxide (Milk Of Magnesia) 30 ml PO BID PRN PRN Reason: Constipation Morphine Sulfate (Morphine) 2 mg IVPUSH Q2H PRN PRN Reason: Breakthrough Pain Naloxone HCl (Narcan) 0.1 mg IVPUSH Q5M PRN PRN Reason: Oversedation Ondansetron HCl (Zofran) 4 mg IVPUSH Q6H PRN PRN Reason: Nausea/Vomiting Oxycodone HCl (Oxycontin) 10 mg PO ONETIME TANESHA Stop: 04/23/19 14:00 Last Admin: 04/23/19 06:37 Dose: 10 mg Oxycodone/Acetaminophen (Percocet 325-5 Mg) 1 - 2 tab PO Q4H PRN PRN Reason: Pain Pregabalin (Lyrica) 50 mg PO ONETIME TANESHA Stop: 04/23/19 14:00 Last Admin: 04/23/19 06:37 Dose: 50 mg Senna (Senna) 8.6 mg PO BID PRN PRN Reason: Constipation Sodium Chloride (Saline Flush) 10 ml FLUSH ASDIRECTED PRN PRN Reason: Keep Vein Open Stop: 04/23/19 18:00 Discontinued Medications Bupivacaine HCl (Sensorcaine-Mpf 0.25%) Confirm Administered Dose 30 ml .ROUTE .STK-MED ONE Stop: 04/23/19 06:29 Bupivacaine HCl (Sensorcaine-Mpf 0.25%) Confirm Administered Dose 10 ml .ROUTE .STK-MED ONE Stop: 04/23/19 06:33 Cefazolin Sodium (Ancef) Confirm Administered Dose 2 gm .ROUTE .STK-MED ONE Stop: 04/23/19 06:33 Cefazolin Sodium (Ancef) Confirm Administered Dose 2 gm .ROUTE .STK-MED ONE Stop: 04/23/19 07:17 Morphine Sulfate 8 mg/Epinephrine HCl 0.3 mg/Cefuroxime Sodium 750 mg/Ketorolac Tromethamine 30 mg/Sodium Chloride 27.9 ml 0 mg .XX ONETIME ONE Stop: 04/23/19 07:31 Dexamethasone (Dexamethasone) Confirm Administered Dose 20 mg .ROUTE .STK-MED ONE Stop: 04/23/19 07:28 Epinephrine HCl (Adrenalin) Confirm Administered Dose 1 mg .ROUTE .STK-MED ONE Stop: 04/23/19 06:52 Epinephrine HCl (Adrenalin) Confirm Administered Dose 1 mg .ROUTE .STK-MED ONE Stop: 04/23/19 07:15 Fentanyl (Sublimaze) Confirm Administered Dose 100 mcg .ROUTE .STK-MED ONE Stop: 04/23/19 06:56 Lidocaine HCl (Xylocaine-Mpf 1%) Confirm Administered Dose 4 mls @ as directed .ROUTE .STK-MED ONE Stop: 04/23/19 06:58 Lactated Ringer's (Ringers, Lactated) Confirm Administered Dose 1,000 mls @ as directed .ROUTE .STK-MED ONE Stop: 04/23/19 07:35 Iodine (Iodine 2% Mild Tincture) Confirm Administered Dose 30 ml .ROUTE .STK- MED ONE Stop: 04/23/19 06:29 Midazolam HCl (Versed 1 Mg/Ml) Confirm Administered Dose 2 mg .ROUTE .STK-MED ONE Stop: 04/23/19 06:56 Ondansetron HCl (Zofran) Confirm Administered Dose 4 mg .ROUTE .STK-MED ONE Stop: 04/23/19 07:28 Propofol (Diprivan 20 Ml) Confirm Administered Dose 600 mg .ROUTE .STK-MED ONE Stop: 04/23/19 06:56 Ropivacaine (Naropin 0.5%) Confirm Administered Dose 30 ml .ROUTE .STK-MED ONE Stop: 04/23/19 06:52 Ropivacaine (Naropin 0.5%) Confirm Administered Dose 30 ml .ROUTE .STK-MED ONE Stop: 04/23/19 07:16 Tranexamic Acid (Cyklokapron) Confirm Administered Dose 1,000 mg .ROUTE .STK- MED ONE Stop: 04/23/19 06:29 Triamcinolone Acetonide (Kenalog-40) Confirm Administered Dose 80 mg .ROUTE .STK -MED ONE Stop: 04/23/19 06:33 Vancomycin HCl (Vancomycin) Confirm Administered Dose 1 gm .ROUTE .STK-MED ONE Stop: 04/23/19 06:29
--- NOTE | 2019-04-23 08:59 | PCM.POSTAN ---
POST ANESTHESIA ASSESSMENT - MENTAL STATUS Mental Status: Alert, Oriented - VITAL SIGNS Vital Signs: Last Vital Signs Temp 36.5 C 04/23/19 08:51 Pulse 78 Resp 11 L 04/23/19 08:51 BP 96/57 L 04/23/19 08:51 Pulse Ox 96 04/23/19 08:51 - RESPIRATORY Respiratory Status: Respiratory Rate WNL, Airway Patent, O2 Saturation Stable, Supplemental Oxygen - CARDIOVASCULAR CV Status: Pulse Rate WNL, Blood Pressure Stable - GASTROINTESTINAL GI Status: No Symptoms - PAIN Pain Score: 0 - POST OP HYDRATION Hydration Status: Adequate & Stable
--- NOTE | 2019-04-23 09:18 | PCM.SN ---
- Free Text/Narrative Note: Right selective femoral nerve block at the adductor canal for post-procedure pain control Time Out: 900 Start: 900 End: 909 Chart reviewed. Consent signed. Questions answered. Appropriate monitors applied. Time out performed. Right mid-shaft femur evaluated with ultrasound. Scanning medially femur, I was able to identify the femoral artery in the adductor canal. The saphenous nerve was lateral to the artery. The skin was prepped lateral to the ultrasound probe with chlorahexadine. The 21ga 4 insulated block needle was inserted under direct ultrasound guidance into the adductor canal. 20mL of 0.5% ropivacaine with 1:200,000 epinephrine was injected cirmcumferentially about the nerve with intermittent negative aspiration every 5mL. Patient tolerated the procedure well. No complications noted. See pictures on progress note and vital signs on nurses notes. Block completed postoperatively. Stefanie Jones CRNA
--- NOTE | 2019-04-23 10:28 | CR ---
Right knee: Two views of the right knee were obtained. Comparison: Previous MRI right knee study of 03/04/12. Knee prosthesis is seen. Components are aligned. Underlying bony structures are intact. Soft tissue air is noted from the surgical procedure. Impression: 1. Satisfactory postoperative radiographic appearance of recently placed right knee prosthesis. Diagnostic code #2 This report was dictated in [place] Standard Time
[2019-04-23] MEDS: Acetaminophen/oxyCODONE 325-5 MG Tab PO PRN ×2 (11:57→18:41)
[2019-04-23] MEDS ORDERED: Ketorolac 15 MG/ML SDV IVPUSH PRN (12:00)
[2019-04-23] MEDS: ceFAZolin 2 GM in Premix Bag 1 BAG IV SCH ×2 (16:34→23:04)
[2019-04-23] MEDS ORDERED: LORazepam 1 MG Tab PO PRN (19:03)
[2019-04-23] MEDS: Famotidine 20 MG Tab PO SCH (20:16)
[2019-04-23] MEDS: Docusate Sodium 100 MG Cap PO SCH (20:16)
[2019-04-23] MEDS ORDERED: Carbidopa/Levodopa 25-100 MG Tab PO SCH (21:00)
[2019-04-24] MEDS: Acetaminophen/oxyCODONE 325-5 MG Tab PO PRN ×2 (02:14→09:37)
[2019-04-24] MEDS: ceFAZolin 2 GM in Premix Bag 1 BAG IV SCH (06:33)
[2019-04-24] MEDS ORDERED: Pantoprazole 40 MG Tab.CR PO SCH (07:00)
[2019-04-24] MEDS ORDERED: Levothyroxine 100 MCG Tab PO SCH (07:00)
[2019-04-24 08:20] VITALS: BP 120/67; PULSE 77
[2019-04-24] MEDS ORDERED: Venlafaxine 75 MG Cap.ER PO SCH (09:00)
[2019-04-24] MEDS ORDERED: Saccharomyces Boulardii (Probiotic) 250 MG Cap PO SCH (09:00)
[2019-04-24] MEDS ORDERED: amLODIPine 10 MG Tab PO SCH (09:00)
[2019-04-24] MEDS ORDERED: Cholecalciferol (Vitamin D3) 5,000 UNIT Tab PO SCH (09:00)
[2019-04-24] MEDS ORDERED: Levothyroxine 75 MCG Tab PO SCH (09:00)
[2019-04-24] MEDS ORDERED: Potassium Chloride 20 MEQ Tab.ER PO SCH (09:00)
[2019-04-24] MEDS ORDERED: Aspirin 325 MG Tab.EC PO SCH (09:00)
[2019-04-24] MEDS: Famotidine 20 MG Tab PO SCH (09:39)
[2019-04-24] MEDS: Docusate Sodium 100 MG Cap PO SCH (09:42)
--- NOTE | 2019-04-24 11:55 | PCM48HPAN ---
Post Anesthesia Note - EVALUATION WITHIN 48HRS OF ANESTHETIC Vital Signs in Normal Range: Yes Patient Participated in Evaluation: Yes Respiratory Function Stable: Yes Airway Patent: Yes Cardiovascular Function Stable: Yes Hydration Status Stable: Yes Pain Control Satisfactory: Yes Nausea and Vomiting Control Satisfactory: Yes Mental Status Recovered: Yes Vital Signs: Last Vital Signs Temp 36.7 C 04/24/19 07:41 Pulse 77 04/24/19 07:41 Resp 16 04/24/19 07:41 BP 120/67 04/24/19 09:43 Pulse Ox 94 L 04/24/19 07:41
--- NOTE | 2019-04-24 14:51 | PCM.SURGPN ---
- General Info Date of Service: 04/24/19 POD#: 1 Functional Status: Reports: Pain Controlled, Tolerating Diet, Ambulating, Urinating, Incentive Spirometry (The pt states she feels prepared for discharge to home.) - Patient Data Vitals - Most Recent: Last Vital Signs Temp 98.1 F 04/24/19 07:41 Pulse 77 04/24/19 07:41 Resp 16 04/24/19 07:41 BP 120/67 04/24/19 09:43 Pulse Ox 94 L 04/24/19 07:41 Weight - Most Recent: 184 lb I&O - Last 24 Hours: Intake & Output 04/23/19 04/24/19 04/24/19 22:59 06:59 14:59 Intake Total 1660 550 360 Output Total 500 1200 Balance 1160 -650 360 Lab Results Last 24 Hrs: Laboratory Results - last 24 hr 04/24/19 04/24/19 Range/Units 05:36 05:36 WBC 15.90 H (3.98-10.04) K/mm3 RBC 4.34 (3.98-5.22) M/mm3 Hgb 12.1 D (11.2-15.7) gm/dl Hct 37.9 (34.1-44.9) % MCV 87.3 (79.4-94.8) fl MCH 27.9 (25.6-32.2) pg MCHC 31.9 L (32.2-35.5) g/dl RDW Std Deviation 47.7 H (36.4-46.3) fL Plt Count 348 (182-369) K/mm3 MPV 10.6 (9.4-12.3) fl Sodium 141 (136-145) mEq/L Potassium 3.7 (3.5-5.1) mEq/L Chloride 104 (98-107) mEq/L Carbon Dioxide 28 (21-32) mEq/L Anion Gap 12.7 (5-15) BUN 9 (7-18) mg/dL Creatinine 0.9 (0.55-1.02) mg/dL Est Cr Clr Drug Dosing 47.65 mL/min Estimated GFR (MDRD) > 60 (>60) mL/min BUN/Creatinine Ratio 10.0 L (14-18) Glucose 179 H (80-115) mg/dL Calcium 9.4 (8.5-10.1) mg/dL Total Bilirubin 0.2 (0.2-1.0) mg/dL AST 15 (15-37) U/L ALT 21 (14-59) U/L Alkaline Phosphatase 90 (46-116) U/L Total Protein 6.4 (6.4-8.2) g/dl Albumin 2.8 L (3.4-5.0) g/dl Globulin 3.6 gm/dL Albumin/Globulin Ratio 0.8 L (1-2) Med Orders - Current: Current Medications Amlodipine Besylate (Norvasc) 10 mg PO DAILY [facility] Last Admin: 04/24/19 09:43 Dose: 10 mg Aspirin (Ecotrin) 325 mg PO BID [facility] Last Admin: 04/24/19 09:37 Dose: 325 mg Bisacodyl (Dulcolax) 5 mg PO DAILY PRN PRN Reason: Constipation Carbidopa/Levodopa (Sinemet 25-100 Mg) 1 tab PO BEDTIME [facility] Last Admin: 04/23/19 20:16 Dose: Not Given Cholecalciferol (Vitamin D3) 5,000 unit PO DAILY [facility] Last Admin: 04/24/19 09:37 Dose: 5,000 unit Cyclobenzaprine HCl (Flexeril) 10 mg PO TID PRN PRN Reason: Spasms Docusate Sodium (Colace) 100 mg PO BID [facility] Last Admin: 04/24/19 09:42 Dose: 100 mg Famotidine (Pepcid) 20 mg PO Q12H [facility] Last Admin: 04/24/19 09:39 Dose: 20 mg Ketorolac Tromethamine (Toradol) 15 mg IVPUSH Q6H PRN PRN Reason: Pain Levothyroxine Sodium (Synthroid) 100 mcg PO DAILY@0700 [facility] Last Admin: 04/24/19 06:33 Dose: 100 mcg Lorazepam (Ativan) 1 mg PO BID PRN PRN Reason: Anxiety Magnesium Hydroxide (Milk Of Magnesia) 30 ml PO BID PRN PRN Reason: Constipation Morphine Sulfate (Morphine) 2 mg IVPUSH Q2H PRN PRN Reason: Breakthrough Pain Naloxone HCl (Narcan) 0.1 mg IVPUSH Q5M PRN PRN Reason: Oversedation Ondansetron HCl (Zofran) 4 mg IVPUSH Q6H PRN PRN Reason: Nausea/Vomiting Oxycodone/Acetaminophen (Percocet 325-5 Mg) 1 - 2 tab PO Q4H PRN PRN Reason: Pain Last Admin: 04/24/19 09:37 Dose: 2 tab Pantoprazole Sodium (Protonix) 40 mg PO DAILY@0700 [facility] Last Admin: 04/24/19 06:33 Dose: 40 mg Potassium Chloride (Klor-Con M20) 20 meq PO DAILY [facility] Last Admin: 04/24/19 09:40 Dose: 20 meq Saccharomyces Boulardii (Florastor) 250 mg PO DAILY [facility] Last Admin: 04/24/19 09:40 Dose: 250 mg Senna (Senna) 8.6 mg PO BID PRN PRN Reason: Constipation Simvastatin (Zocor) 20 mg PO BEDTIME [facility] Venlafaxine HCl (Effexor Xr) 150 mg PO DAILY [facility] Last Admin: 04/24/19 09:42 Dose: 150 mg Discontinued Medications Acetaminophen (Tylenol) 975 mg PO ONETIME [facility] Stop: 04/23/19 14:00 Last Admin: 04/23/19 06:37 Dose: 975 mg Bupivacaine HCl (Sensorcaine-Mpf 0.25%) Confirm Administered Dose 30 ml .ROUTE .STK-MED ONE Stop: 04/23/19 06:29 Last Admin: 04/23/19 08:15 Dose: 30 ml Bupivacaine HCl (Sensorcaine-Mpf 0.25%) Confirm Administered Dose 10 ml .ROUTE .STK-MED ONE Stop: 04/23/19 06:33 Last Admin: 04/23/19 08:45 Dose: 4 ml Cefazolin Sodium (Ancef) Confirm Administered Dose 2 gm .ROUTE .STK-MED ONE Stop: 04/23/19 06:33 Last Admin: 04/23/19 08:10 Dose: 2 gm Cefazolin Sodium (Ancef) Confirm Administered Dose 2 gm .ROUTE .STK-MED ONE Stop: 04/23/19 07:17 Morphine Sulfate 8 mg/Epinephrine HCl 0.3 mg/Cefuroxime Sodium 750 mg/Ketorolac Tromethamine 30 mg/Sodium Chloride 27.9 ml 0 mg .XX ONETIME ONE Stop: 04/23/19 07:31 Last Admin: 04/23/19 20:52 Dose: Not Given Dexamethasone (Dexamethasone) Confirm Administered Dose 20 mg .ROUTE .STK-MED ONE Stop: 04/23/19 07:28 Epinephrine HCl (Adrenalin) Confirm Administered Dose 1 mg .ROUTE .STK-MED ONE Stop: 04/23/19 06:52 Epinephrine HCl (Adrenalin) Confirm Administered Dose 1 mg .ROUTE .STK-MED ONE Stop: 04/23/19 07:15 Fentanyl (Sublimaze) Confirm Administered Dose 100 mcg .ROUTE .STK-MED ONE Stop: 04/23/19 06:56 Fentanyl (Sublimaze) 50 mcg IVPUSH Q5M PRN PRN Reason: Pain Stop: 04/23/19 12:00 Hydromorphone HCl (Dilaudid) 0.5 mg IVPUSH Q10M PRN PRN Reason: Pain (severe 7-10) Stop: 04/23/19 12:00 Lactated Ringer's (Ringers, Lactated) 1,000 mls @ 125 mls/hr IV ASDIRECTED [facility] Stop: 04/23/19 23:00 Last Admin: 04/23/19 06:50 Dose: 125 mls/hr Cefazolin Sodium/Dextrose 2 gm (/ Premix) 50 mls @ 100 mls/hr IV Q8H [facility] Stop: 04/24/19 07:59 Last Admin: 04/24/19 06:33 Dose: 100 mls/hr Lidocaine HCl (Xylocaine-Mpf 1%) Confirm Administered Dose 4 mls @ as directed .ROUTE .STK-MED ONE Stop: 04/23/19 06:58 Lactated Ringer's (Ringers, Lactated) Confirm Administered Dose 1,000 mls @ as directed .ROUTE .STK-MED ONE Stop: 04/23/19 07:35 Iodine (Iodine 2% Mild Tincture) Confirm Administered Dose 30 ml .ROUTE .STK- MED ONE Stop: 04/23/19 06:29 Last Admin: 04/23/19 08:04 Dose: 18 ml Ketorolac Tromethamine (Toradol) Confirm Administered Dose 30 mg .ROUTE .STK- MED ONE Stop: 04/23/19 08:06 Levothyroxine Sodium (Levothyroxine) 75 mcg PO DAILY [facility] Lidocaine/Sodium Bicarbonate (Buffered Lidocaine 1% In Ns 8.4%) 0.25 ml IDERM ONETIME PRN PRN Reason: Prior to IV Start Stop: 04/23/19 18:00 Last Admin: 04/23/19 06:49 Dose: 0.25 ml Midazolam HCl (Versed 1 Mg/Ml) Confirm Administered Dose 2 mg .ROUTE .STK-MED ONE Stop: 04/23/19 06:56 Ondansetron HCl (Zofran) Confirm Administered Dose 4 mg .ROUTE .STK-MED ONE Stop: 04/23/19 07:28 Ondansetron HCl (Zofran) 4 mg IVPUSH ONETIME PRN PRN Reason: Nausea/Vomiting Stop: 04/23/19 12:00 Oxycodone HCl (Oxycontin) 10 mg PO ONETIME [facility] Stop: 04/23/19 14:00 Last Admin: 04/23/19 06:37 Dose: 10 mg Pregabalin (Lyrica) 50 mg PO ONETIME [facility] Stop: 04/23/19 14:00 Last Admin: 04/23/19 06:37 Dose: 50 mg Propofol (Diprivan 20 Ml) Confirm Administered Dose 600 mg .ROUTE .STK-MED ONE Stop: 04/23/19 06:56 Ropivacaine (Naropin 0.5%) Confirm Administered Dose 30 ml .ROUTE .STK-MED ONE Stop: 04/23/19 06:52 Ropivacaine (Naropin 0.5%) Confirm Administered Dose 30 ml .ROUTE .STK-MED ONE Stop: 04/23/19 07:16 Sodium Chloride (Saline Flush) 10 ml FLUSH ASDIRECTED PRN PRN Reason: Keep Vein Open Stop: 04/23/19 18:00 Tranexamic Acid (Cyklokapron) Confirm Administered Dose 1,000 mg .ROUTE .STK- MED ONE Stop: 04/23/19 06:29 Last Admin: 04/23/19 08:23 Dose: 1,000 mg Triamcinolone Acetonide (Kenalog-40) Confirm Administered Dose 80 mg .ROUTE .STK -MED ONE Stop: 04/23/19 06:33 Last Admin: 04/23/19 08:45 Dose: 80 mg Vancomycin HCl (Vancomycin) Confirm Administered Dose 1 gm .ROUTE .STK-MED ONE Stop: 04/23/19 06:29 Last Admin: 04/23/19 08:18 Dose: 1 gm - Exam Wound/Incisions: Dressing Dry and Intact General: Alert, Cooperative, No Acute Distress Lungs: Normal Respiratory Effort Extremities: Other (NVS intact for RLE. Armand's negative.) Sepsis Event Note - Evaluation Sepsis Screening Result: No Definite Risk - Focused Exam Vital Signs: Vital Signs Temp Pulse Resp BP Pulse Ox 04/24/19 09:43 120/67 04/24/19 07:41 98.1 F 77 16 120/67 94 L 04/24/19 04:08 97.9 F 87 16 114/65 91 L Date Exam was Performed: 04/24/19 Time Exam was Performed: 14:47 - Problem List Review Problem List Initiated/Reviewed/Updated: Yes - My Orders Last 24 Hours: Active Orders 24 hr Category Date Time Status Ready for Discharge [RC] PER UNIT ROUTINE Care 04/24/19 08:35 Active Aspirin [Ecotrin] Med 04/24/19 09:00 Active 325 mg PO BID Carbidopa/Levodopa [Sinemet 25-100 mg] Med 04/23/19 21:00 Active 1 tab PO BEDTIME Cholecalciferol (Vitamin D3) [Vitamin D3] Med 04/24/19 09:00 Active 5,000 unit PO DAILY Docusate Sodium [Colace] Med 04/23/19 21:00 Active 100 mg PO BID Famotidine [Pepcid] Med 04/23/19 21:00 Active 20 mg PO Q12H LORazepam [Ativan] Med 04/23/19 19:03 Active 1 mg PO BID PRN Levothyroxine [Synthroid] Med 04/24/19 07:00 Active 100 mcg PO DAILY@0700 Pantoprazole [ProTONIX] Med 04/24/19 07:00 Active 40 mg PO DAILY@0700 Potassium Chloride [Klor-Con M20] Med 04/24/19 09:00 Active 20 meq PO DAILY Saccharomyces Boulardii [Florastor] Med 04/24/19 09:00 Active 250 mg PO DAILY Simvastatin [Zocor] Med 04/24/19 21:00 Active 20 mg PO BEDTIME Venlafaxine [Effexor XR] Med 04/24/19 09:00 Active 150 mg PO DAILY amLODIPine [Norvasc] Med 04/24/19 09:00 Active 10 mg PO DAILY Medication Orders Amlodipine Besylate (Norvasc) 10 mg PO DAILY [facility] Last Admin: 04/24/19 09:43 Dose: 10 mg Aspirin (Ecotrin) 325 mg PO BID [facility] Last Admin: 04/24/19 09:37 Dose: 325 mg Bisacodyl (Dulcolax) 5 mg PO DAILY PRN PRN Reason: Constipation Carbidopa/Levodopa (Sinemet 25-100 Mg) 1 tab PO BEDTIME [facility] Last Admin: 04/23/19 20:16 Dose: Not Given Cholecalciferol (Vitamin D3) 5,000 unit PO DAILY [facility] Last Admin: 04/24/19 09:37 Dose: 5,000 unit Cyclobenzaprine HCl (Flexeril) 10 mg PO TID PRN PRN Reason: Spasms Docusate Sodium (Colace) 100 mg PO BID [facility] Last Admin: 04/24/19 09:42 Dose: 100 mg Admin: 04/23/19 20:16 Dose: 100 mg Famotidine (Pepcid) 20 mg PO Q12H [facility] Last Admin: 04/24/19 09:39 Dose: 20 mg Admin: 04/23/19 20:16 Dose: 20 mg Ketorolac Tromethamine (Toradol) 15 mg IVPUSH Q6H PRN PRN Reason: Pain Levothyroxine Sodium (Synthroid) 100 mcg PO DAILY@0700 [facility] Last Admin: 04/24/19 06:33 Dose: 100 mcg Lorazepam (Ativan) 1 mg PO BID PRN PRN Reason: Anxiety Magnesium Hydroxide (Milk Of Magnesia) 30 ml PO BID PRN PRN Reason: Constipation Morphine Sulfate (Morphine) 2 mg IVPUSH Q2H PRN PRN Reason: Breakthrough Pain Naloxone HCl (Narcan) 0.1 mg IVPUSH Q5M PRN PRN Reason: Oversedation Ondansetron HCl (Zofran) 4 mg IVPUSH Q6H PRN PRN Reason: Nausea/Vomiting Oxycodone/Acetaminophen (Percocet 325-5 Mg) 1 - 2 tab PO Q4H PRN PRN Reason: Pain Last Admin: 04/24/19 09:37 Dose: 2 tab Admin: 04/24/19 02:14 Dose: 2 tab Admin: 04/23/19 18:41 Dose: 2 tab Admin: 04/23/19 11:57 Dose: 2 tab Pantoprazole Sodium (Protonix) 40 mg PO DAILY@0700 [facility] Last Admin: 04/24/19 06:33 Dose: 40 mg Potassium Chloride (Klor-Con M20) 20 meq PO DAILY [facility] Last Admin: 04/24/19 09:40 Dose: 20 meq Saccharomyces Boulardii (Florastor) 250 mg PO DAILY [facility] Last Admin: 04/24/19 09:40 Dose: 250 mg Senna (Senna) 8.6 mg PO BID PRN PRN Reason: Constipation Simvastatin (Zocor) 20 mg PO BEDTIME [facility] Venlafaxine HCl (Effexor Xr) 150 mg PO DAILY [facility] Last Admin: 04/24/19 09:42 Dose: 150 mg - Assessment Assessment (Free Text/Narrative):: PD#1 - right TKA with left knee cortisone injection - Plan Plan (Free Text/Narrative):: 1. Hgb 12.1. 2. ASA PO BID, frequent mobility, TEDs. 3. Discharge to home today. 4. Outpatient PT. The pt's case was discussed with Dr. Steiner.
--- NOTE | 2019-04-24 14:52 | PCM.DCSUM1 ---
Discharge Summary - Hospital Course Brief History: Goldie is a 64 yo female who underwent right TKA with Dr. Steiner on 04-23-2019. The procedure was completed under spinal anesthesia with MAC and post-op adductor canal block. The pt tolerated the procedure well and was admitted to the Medical-Surgical Unit. The pt's Hospital course was uneventful. The pt's Hgb on POD#1 was 12.1. On POD#1, 325mg ASA BID was initiated for VTE prophylaxis. SCDs and TEDs were also ordered. A Mepilex dressing was placed at the incision site at the time of surgery and remained clean and dry. The pt participated in P.T. and O.T. and progressed well. The pt was allowed to WBAT. On POD#1, the pt was deemed appropriate to discharge to home. - Discharge Data Discharge Date: 04/24/19 Discharge Disposition: Home, Self-Care 01 Condition: Good - Referral to Home Health Primary Care Physician: Shira Ferrara PA-C - Patient Summary/Data Consults: Consultations 04/23/19 05:52 OT Evaluation and Treatment [CONS] Routine PT Evaluation and Treatment [CONS] Routine - Patient Instructions Diet: Usual Diet as Tolerated Activity: Apply Ice, As Tolerated, Elevate Extremity, Full Weight Bearing Driving: Do Not Drive Showering/Bathing: May Shower Wound/Incision Care: Keep Operative Site/Wound Site Clean and Dry, Do NOT Change Dressing Notify Provider of: Fever, Increased Pain, Swelling and Redness, Drainage, Nausea and/or Vomiting Other/Special Instructions: Please get up and moving around EVERY HOUR while awake. This helps to prevent blood clots. Please use your walker and have help with mobility as needed. Take a short walk in your home every hour while awake. Please take 325mg Aspirin TWICE daily. The aspirin is being used for blood clot prevention and not for pain management so please do not miss a dose of the medication. You could use a medication like Pepcid or Tagamet and a medication like Prilosec or Nexium to protect your stomach while you are using the aspirin. At home, please complete the exercises that you learned during the Hospital stay. Schedule for physical therapy. Use the pain medication as needed. The medication may cause drowsiness and constipation. Contact your primary care provider for instructions if you are constipated. You may use a stool softener like docusate sodium or Colace 100mg twice daily and/or a laxative like Miralax daily for constipation. Increase your water and fiber intake while you are using the pain medication. Discontinue use of the pain medication as soon as able. Please do not use other medications that may cause drowsiness (other pain medications, anxiety pills, cold medications, sleeping pills, etc) while using the prescription pain medication. Do not use alcohol while using the pain medication. You may use acetaminophen or Tylenol for pain management, however, please ensure you are not using over 4000 mg or 4 grams of acetaminophen per day from all sources. Your pain medication has 325mg of acetaminophen per tablet. At this time, please do not use ibuprofen (Motrin, Advil) or naproxen (Aleve) for pain management as you are using the aspirin. When the aspirin course is completed in 4 to 6 weeks, you could use ibuprofen or naproxen for pain management (if this is allowed by your primary care provider). Wear the MARS hose during the day and you may remove these at night. Elevate the limb to decrease swelling. Place ice to the area often. Place a towel between your skin and the blue pad. Use the incentive spirometer often. Take deep breaths throughout the day. Please keep the dressing in place until follow-up. Notify the Clinic if the dressing becomes saturated. Increase your protein intake while you are healing. If you have diabetes, please closely monitor your blood sugars and notify your primary care provider with abnormal values. Elevated blood sugars increases the risk of infection. Call the Clinic with questions or concerns - [phone]. - Discharge Plan *PRESCRIPTION DRUG MONITORING PROGRAM REVIEWED*: No *COPY OF PRESCRIPTION DRUG MONITORING REPORT IN PATIENT ENEDELIA: No Prescriptions/Med Rec: Acetaminophen/oxyCODONE [Percocet 325-5 MG] 1 - 2 tab PO Q4H PRN #60 tablet PRN Reason: Pain Aspirin [Ecotrin EC] 325 mg PO BID #84 tab.ec Cyclobenzaprine [Flexeril] 5 mg PO TID PRN #20 tablet PRN Reason: Spasms Home Medications: Home Meds Carbidopa/Levodopa [Carbidopa-Levodopa 25-100] 1 tab PO BEDTIME 05/23/15 [ History] LORazepam [Ativan] 1 mg PO BID PRN 05/23/15 [History] Levothyroxine 75 mcg PO DAILY 05/23/15 [History] amLODIPine [Norvasc] 10 mg PO DAILY 05/23/15 [History] Hydrochlorothiazide 25 mg PO DAILY 08/02/16 [History] atorvaSTATin Calcium [Atorvastatin Calcium] 20 mg PO DAILY 03/27/17 [History] Levothyroxine 25 mcg PO DAILY #30 tablet 03/13/18 [Rx] Omeprazole 20 mg PO DAILY 10/08/18 [History] Venlafaxine HCl [Venlafaxine ER] 150 mg PO DAILY 10/08/18 [History] Cholecalciferol (Vitamin D3) [Vitamin D3] 5,000 unit PO DAILY 04/22/19 [History] Lactobacillus Combo No.11 [Probiotic] 1 cap PO DAILY 04/22/19 [History] Lorcaserin HCl [Belviq Xr] 20 mg PO DAILY 04/22/19 [History] Potassium Chloride [Klor-Con M20] 20 meq PO DAILY 04/22/19 [History] Prevagen 1 tab PO DAILY 04/22/19 [History] Acetaminophen/oxyCODONE [Percocet 325-5 MG] 1 - 2 tab PO Q4H PRN #60 tablet [Rx] Aspirin [Ecotrin EC] 325 mg PO BID #84 tab.ec 04/24/19 [Rx] Bisacodyl [Dulcolax] 5 mg PO DAILY PRN tablet 04/24/19 [Rx] Cyclobenzaprine [Flexeril] 5 mg PO TID PRN #20 tablet 04/24/19 [Rx] Docusate Sodium [Colace] 100 mg PO BID cap 04/24/19 [Rx] Famotidine [Pepcid] 20 mg PO Q12H tablet 04/24/19 [Rx] Sennosides [Senna] 8.6 mg PO BID PRN tablet 04/24/19 [Rx] Patient Handouts: Total Knee Replacement, [id number] Referrals: Yoanna Lei PA-C [Physician Powder Loader] - (1. Follow-up with Yoanna Lei PA-C on Wednesday, May 01, 2019 at 9:15 am. 2. Follow-up with Yoanna Lei PA-C on Sunday, May 12, 2019 at 3:15 pm. 3. Follow-up with Yoanna Lei PA-C on Wednesday, June 05, 2019 at 11:30 am.) - Discharge Summary/Plan Comment DC Time >30 min.: No - Patient Data Vitals - Most Recent: Last Vital Signs Temp 98.1 F 04/24/19 07:41 Pulse 77 04/24/19 07:41 Resp 16 04/24/19 07:41 BP 120/67 04/24/19 09:43 Pulse Ox 94 L 04/24/19 07:41 Weight - Most Recent: 184 lb I&O - Last 24 hours: Intake & Output 04/23/19 04/24/19 04/24/19 22:59 06:59 14:59 Intake Total 1660 550 360 Output Total 500 1200 Balance 1160 -650 360 Lab Results - Last 24 hrs: Laboratory Results - last 24 hr 04/24/19 04/24/19 Range/Units 05:36 05:36 WBC 15.90 H (3.98-10.04) K/mm3 RBC 4.34 (3.98-5.22) M/mm3 Hgb 12.1 D (11.2-15.7) gm/dl Hct 37.9 (34.1-44.9) % MCV 87.3 (79.4-94.8) fl MCH 27.9 (25.6-32.2) pg MCHC 31.9 L (32.2-35.5) g/dl RDW Std Deviation 47.7 H (36.4-46.3) fL Plt Count 348 (182-369) K/mm3 MPV 10.6 (9.4-12.3) fl Sodium 141 (136-145) mEq/L Potassium 3.7 (3.5-5.1) mEq/L Chloride 104 (98-107) mEq/L Carbon Dioxide 28 (21-32) mEq/L Anion Gap 12.7 (5-15) BUN 9 (7-18) mg/dL Creatinine 0.9 (0.55-1.02) mg/dL Est Cr Clr Drug Dosing 47.65 mL/min Estimated GFR (MDRD) > 60 (>60) mL/min BUN/Creatinine Ratio 10.0 L (14-18) Glucose 179 H (80-115) mg/dL Calcium 9.4 (8.5-10.1) mg/dL Total Bilirubin 0.2 (0.2-1.0) mg/dL AST 15 (15-37) U/L ALT 21 (14-59) U/L Alkaline Phosphatase 90 (46-116) U/L Total Protein 6.4 (6.4-8.2) g/dl Albumin 2.8 L (3.4-5.0) g/dl Globulin 3.6 gm/dL Albumin/Globulin Ratio 0.8 L (1-2) Med Orders - Current: Current Medications Amlodipine Besylate (Norvasc) 10 mg PO DAILY [facility] Last Admin: 04/24/19 09:43 Dose: 10 mg Aspirin (Ecotrin) 325 mg PO BID [facility] Last Admin: 04/24/19 09:37 Dose: 325 mg Bisacodyl (Dulcolax) 5 mg PO DAILY PRN PRN Reason: Constipation Carbidopa/Levodopa (Sinemet 25-100 Mg) 1 tab PO BEDTIME [facility] Last Admin: 04/23/19 20:16 Dose: Not Given Cholecalciferol (Vitamin D3) 5,000 unit PO DAILY [facility] Last Admin: 04/24/19 09:37 Dose: 5,000 unit Cyclobenzaprine HCl (Flexeril) 10 mg PO TID PRN PRN Reason: Spasms Docusate Sodium (Colace) 100 mg PO BID [facility] Last Admin: 04/24/19 09:42 Dose: 100 mg Famotidine (Pepcid) 20 mg PO Q12H [facility] Last Admin: 04/24/19 09:39 Dose: 20 mg Ketorolac Tromethamine (Toradol) 15 mg IVPUSH Q6H PRN PRN Reason: Pain Levothyroxine Sodium (Synthroid) 100 mcg PO DAILY@0700 [facility] Last Admin: 04/24/19 06:33 Dose: 100 mcg Lorazepam (Ativan) 1 mg PO BID PRN PRN Reason: Anxiety Magnesium Hydroxide (Milk Of Magnesia) 30 ml PO BID PRN PRN Reason: Constipation Morphine Sulfate (Morphine) 2 mg IVPUSH Q2H PRN PRN Reason: Breakthrough Pain Naloxone HCl (Narcan) 0.1 mg IVPUSH Q5M PRN PRN Reason: Oversedation Ondansetron HCl (Zofran) 4 mg IVPUSH Q6H PRN PRN Reason: Nausea/Vomiting Oxycodone/Acetaminophen (Percocet 325-5 Mg) 1 - 2 tab PO Q4H PRN PRN Reason: Pain Last Admin: 04/24/19 09:37 Dose: 2 tab Pantoprazole Sodium (Protonix) 40 mg PO DAILY@0700 [facility] Last Admin: 04/24/19 06:33 Dose: 40 mg Potassium Chloride (Klor-Con M20) 20 meq PO DAILY [facility] Last Admin: 04/24/19 09:40 Dose: 20 meq Saccharomyces Boulardii (Florastor) 250 mg PO DAILY [facility] Last Admin: 04/24/19 09:40 Dose: 250 mg Senna (Senna) 8.6 mg PO BID PRN PRN Reason: Constipation Simvastatin (Zocor) 20 mg PO BEDTIME [facility] Venlafaxine HCl (Effexor Xr) 150 mg PO DAILY [facility] Last Admin: 04/24/19 09:42 Dose: 150 mg Discontinued Medications Acetaminophen (Tylenol) 975 mg PO ONETIME TANESHA Stop: 04/23/19 14:00 Last Admin: 04/23/19 06:37 Dose: 975 mg Bupivacaine HCl (Sensorcaine-Mpf 0.25%) Confirm Administered Dose 30 ml .ROUTE .STK-MED ONE Stop: 04/23/19 06:29 Last Admin: 04/23/19 08:15 Dose: 30 ml Bupivacaine HCl (Sensorcaine-Mpf 0.25%) Confirm Administered Dose 10 ml .ROUTE .STK-MED ONE Stop: 04/23/19 06:33 Last Admin: 04/23/19 08:45 Dose: 4 ml Cefazolin Sodium (Ancef) Confirm Administered Dose 2 gm .ROUTE .STK-MED ONE Stop: 04/23/19 06:33 Last Admin: 04/23/19 08:10 Dose: 2 gm Cefazolin Sodium (Ancef) Confirm Administered Dose 2 gm .ROUTE .STK-MED ONE Stop: 04/23/19 07:17 Morphine Sulfate 8 mg/Epinephrine HCl 0.3 mg/Cefuroxime Sodium 750 mg/Ketorolac Tromethamine 30 mg/Sodium Chloride 27.9 ml 0 mg .XX ONETIME ONE Stop: 04/23/19 07:31 Last Admin: 04/23/19 20:52 Dose: Not Given Dexamethasone (Dexamethasone) Confirm Administered Dose 20 mg .ROUTE .STK-MED ONE Stop: 04/23/19 07:28 Epinephrine HCl (Adrenalin) Confirm Administered Dose 1 mg .ROUTE .STK-MED ONE Stop: 04/23/19 06:52 Epinephrine HCl (Adrenalin) Confirm Administered Dose 1 mg .ROUTE .STK-MED ONE Stop: 04/23/19 07:15 Fentanyl (Sublimaze) Confirm Administered Dose 100 mcg .ROUTE .STK-MED ONE Stop: 04/23/19 06:56 Fentanyl (Sublimaze) 50 mcg IVPUSH Q5M PRN PRN Reason: Pain Stop: 04/23/19 12:00 Hydromorphone HCl (Dilaudid) 0.5 mg IVPUSH Q10M PRN PRN Reason: Pain (severe 7-10) Stop: 04/23/19 12:00 Lactated Ringer's (Ringers, Lactated) 1,000 mls @ 125 mls/hr IV ASDIRECTED [facility] Stop: 04/23/19 23:00 Last Admin: 04/23/19 06:50 Dose: 125 mls/hr Cefazolin Sodium/Dextrose 2 gm (/ Premix) 50 mls @ 100 mls/hr IV Q8H [facility] Stop: 04/24/19 07:59 Last Admin: 04/24/19 06:33 Dose: 100 mls/hr Lidocaine HCl (Xylocaine-Mpf 1%) Confirm Administered Dose 4 mls @ as directed .ROUTE .STK-MED ONE Stop: 04/23/19 06:58 Lactated Ringer's (Ringers, Lactated) Confirm Administered Dose 1,000 mls @ as directed .ROUTE .STK-MED ONE Stop: 04/23/19 07:35 Iodine (Iodine 2% Mild Tincture) Confirm Administered Dose 30 ml .ROUTE .STK- MED ONE Stop: 04/23/19 06:29 Last Admin: 04/23/19 08:04 Dose: 18 ml Ketorolac Tromethamine (Toradol) Confirm Administered Dose 30 mg .ROUTE .STK- MED ONE Stop: 04/23/19 08:06 Levothyroxine Sodium (Levothyroxine) 75 mcg PO DAILY [facility] Lidocaine/Sodium Bicarbonate (Buffered Lidocaine 1% In Ns 8.4%) 0.25 ml IDERM ONETIME PRN PRN Reason: Prior to IV Start Stop: 04/23/19 18:00 Last Admin: 04/23/19 06:49 Dose: 0.25 ml Midazolam HCl (Versed 1 Mg/Ml) Confirm Administered Dose 2 mg .ROUTE .STK-MED ONE Stop: 04/23/19 06:56 Ondansetron HCl (Zofran) Confirm Administered Dose 4 mg .ROUTE .STK-MED ONE Stop: 04/23/19 07:28 Ondansetron HCl (Zofran) 4 mg IVPUSH ONETIME PRN PRN Reason: Nausea/Vomiting Stop: 04/23/19 12:00 Oxycodone HCl (Oxycontin) 10 mg PO ONETIME TANESHA Stop: 04/23/19 14:00 Last Admin: 04/23/19 06:37 Dose: 10 mg Pregabalin (Lyrica) 50 mg PO ONETIME TANESHA Stop: 04/23/19 14:00 Last Admin: 04/23/19 06:37 Dose: 50 mg Propofol (Diprivan 20 Ml) Confirm Administered Dose 600 mg .ROUTE .STK-MED ONE Stop: 04/23/19 06:56 Ropivacaine (Naropin 0.5%) Confirm Administered Dose 30 ml .ROUTE .STK-MED ONE Stop: 04/23/19 06:52 Ropivacaine (Naropin 0.5%) Confirm Administered Dose 30 ml .ROUTE .STK-MED ONE Stop: 04/23/19 07:16 Sodium Chloride (Saline Flush) 10 ml FLUSH ASDIRECTED PRN PRN Reason: Keep Vein Open Stop: 04/23/19 18:00 Tranexamic Acid (Cyklokapron) Confirm Administered Dose 1,000 mg .ROUTE .STK- MED ONE Stop: 04/23/19 06:29 Last Admin: 04/23/19 08:23 Dose: 1,000 mg Triamcinolone Acetonide (Kenalog-40) Confirm Administered Dose 80 mg .ROUTE .STK -MED ONE Stop: 04/23/19 06:33 Last Admin: 04/23/19 08:45 Dose: 80 mg Vancomycin HCl (Vancomycin) Confirm Administered Dose 1 gm .ROUTE .STK-MED ONE Stop: 04/23/19 06:29 Last Admin: 04/23/19 08:18 Dose: 1 gm
[2019-04-24] MEDS ORDERED: Simvastatin 20 MG Tab PO SCH (21:00)
--- NOTE | 2019-04-29 15:02 | PCM.OPNOTE ---
- General Post-Op/Procedure Note Date of Surgery/Procedure: 04/23/19 Operative Procedure(s): right total knee arthroplasty with left knee corticosteroid injection Pre Op Diagnosis: bilateral knee osteoarthrosis Post-Op Diagnosis: Same Anesthesia Technique: Local, MAC, Spinal Primary Surgeon: Chapo Steiner Anesthesia Provider: Kimberly Jones Radio Program Director: Yoanna Lei Radio Program Director: Nadya Silver EBL in mLs: 5 Complications: None Condition: Good Free Text/Narrative:: 3 press fit femur 2 press fit base plate 9mm 29x9
--- NOTE | 2019-04-29 15:33 | OR ---
DATE OF OPERATION: 04/23/2019 SURGEON: Chapo Steiner MD OPERATION PERFORMED: Right total knee arthroplasty with left knee corticosteroid injection. PREOPERATIVE DIAGNOSIS: Bilateral knee osteoarthritis. POSTOPERATIVE DIAGNOSIS: Bilateral knee osteoarthritis. ANESTHESIA: Local MAC with spinal. ANESTHESIA PROVIDER: Sandy Peterson. ASSISTANTS: Yoanna Lei PA-C, and Nadya Silver LPN. ESTIMATED BLOOD LOSS: 5 mL. COMPLICATIONS: None. CONDITION: Stable. IMPLANTS: 1. Radha size 3 press-fit CR femur. 2. Brewster size 2 press-fit tibial baseplate. 3. Radha size 2 9 mm CS polyethylene insert. 4. Brewster size 29 x 9 mm cemented asymmetric patella. DESCRIPTION OF PROCEDURE: The patient was identified in the preop holding area. Proper site was marked and identified by the surgeon. The patient was taken back to the operating theater. After adequate anesthesia, the patient's right lower extremity had a nonsterile tourniquet applied and it was sterilely prepped and draped in the usual sterile fashion. OR time-out was performed. The patient received 2 g IV Ancef. At this time, the right lower extremity was exsanguinated. Tourniquet was insufflated to 300 mmHg. Standard medial parapatellar incision was made. Medial parapatellar arthrotomy was created. Deep fibers of the MCL were raised and anterior fat pad was resected. At this time, attention was turned to the patella. Patella measured an 18, it was resected to a 13 for a 29 x 9 mm patella. Drill holes were then drilled and found to be in adequate position. It was decided to cement the patella secondary to the thinness of the patella. The drill was then drilled in the distal femur and the intramedullary distal femoral cutting guide was then placed. 8 mm was resected off the distal femur and was found to be an adequate resection. Sizing guide was placed. It was found to be a size 3 press-fit CR femur that was shown on the implant record at the beginning of this dictation. The drill holes were drilled for the epicondylar axis using Whitesides line and epicondyles as reference. At this time, the 4-in-1 cutting block was placed. An anterior posterior and anterior and posterior chamfer cuts were then completed. Attention was turned to the tibia. The posterior medial lateral retractors were placed. The extramedullary tibial guide was placed. It was placed in the old footprint of the ACL. It was aligned with the center of the ankle and 0 degrees of slope, 9 mm was then resected off the unaffected side. There was found to be an acceptable reduction. At this time, posterior osteophytes were removed along with medial and lateral meniscus. A trial implant was placed with a correct sized tibia that was mentioned at the beginning of the dictation. A Brewster size 2 9 mm CS polyethylene insert was then placed. The patient's knee was brought through range of motion. The patella was tracking centrally and was stable to varus and valgus stress. Alignment was found to be roughly at 0 degrees. The tibia was stamped and drilled in proper rotation. The universal tibial base plate was impacted in place. Next, the Radha size 3 press-fit CR femur impacted into place and the Radha size 2 9 mm CS polyethylene insert was placed. The patient's knee was brought into full extension. The patella was then cemented in place at this time. One liter dilute Betadine solution was irrigated through the knee along with 3 L of pulse lavage irrigation with Ancef. Periarticular injection was then completed. The patient's knee was brought through a range of motion. Once the cement had time to set up and it was found to be stable to varus valgus stress, the patella was tracking centrally with full range of motion. At this time, a #2 barbed suture was used for closure of the medial parapatellar arthrotomy. Topical tranexamic acid was placed. 2-0 Vicryl was used subcutaneously, Prineo was used for the skin. The patient tolerated the procedure well and was sent to the PACU in stable condition. After this was completed, under sterile technique, 2 mL of 40 mg Kenalog and 4 mL of 0.25% Marcaine was injected to the left knee. RICHELLE /[id number] SALVADOR
== END 2019-04-24 12:15 | disposition home or self-care (01) | DRG 302 ==
LOC: JD.MS 06:09 → EDSTATUS 08:00
PROVIDERS: ADMIT Orthopaedic Surgery; ATTEND Orthopaedic Surgery
PROC: 0SRC0J9 Replacement of Right Knee Joint with Synthetic Substitute, Cemented, Open Approach (ICD-10-PCS; principal; 2019-04-23)
DX: M17.11 Unilateral primary osteoarthritis, right knee (principal); E78.00 Pure hypercholesterolemia, unspecified; I10 Essential (primary) hypertension; K21.9 Gastro-esophageal reflux disease without esophagitis; F41.9 Anxiety disorder, unspecified; F32.9 Major depressive disorder, single episode, unspecified; E03.9 Hypothyroidism, unspecified; E66.9 Obesity, unspecified; Z79.890 Hormone replacement therapy; Z88.0 Allergy status to penicillin; Z88.8 Allergy status to other drugs, medicaments and biological substances; Z79.899 Other long term (current) drug therapy; Z68.34 Body mass index [BMI] 34.0-34.9, adult
CPT/HCPCS: 01402; 36415; 64450; 73560-26-RT; 73560-RT; 80053; 85027; 97110-GP; 97116-GP; 97161-GP; 97165-GO; 97530-GP; 97535-GO; A9270-GY; C1776; J0171; J0690; J0697; J1100; J1885; J2001; J2250; J2270; J2405; J2704; J2795; J3010; J3301; J3370; J3490; J7120

== ENCOUNTER 2020-08-11 07:11 | Day surgery (SDC) | payer MEDICARE, BC ==
[~2020-08-11 07:11] MED LIST changes: -Acetaminophen 325 MG Tab PO SCH; -Bisacodyl 5 MG Tab PO PRN; -Cyclobenzaprine 10 MG Tab PO PRN; -Magnesium Hydroxide 400 MG/5 ML Susp 30 ML Cup PO PRN; -Morphine 2 MG/ML Syringe IVPUSH PRN; -Naloxone 0.4 MG/ML SDV IVPUSH PRN; -Ondansetron 4 MG/2 ML SDV IVPUSH PRN; -Pregabalin 25 MG Cap PO SCH; -Sennosides 8.6 MG Tab PO PRN; -oxyCODONE ER 10 MG TAB.ER PO SCH
[2020-08-11] MEDS ORDERED: Ondansetron 4 MG/2 ML SDV ONE (07:42)
[2020-08-11] MEDS ORDERED: fentaNYL 100 MCG/2 ML SDV ONE (07:42)
[2020-08-11] MEDS ORDERED: ceFAZolin 1 GM Vial ONE (07:42)
[2020-08-11] MEDS ORDERED: Lactated Ringers 1,000 ML ONE (07:42)
[2020-08-11] MEDS ORDERED: Ketorolac 30 MG/ML SDV ONE (07:42)
[2020-08-11] MEDS ORDERED: Propofol 200 MG/20 ML SDV ONE (07:42)
[2020-08-11] MEDS ORDERED: Midazolam 1 MG/ML 2 ML SDV ONE (07:43)
[2020-08-11] MEDS ORDERED: Ketamine 500 mg/10 ML MDV ONE (07:46)
--- NOTE | 2020-08-11 08:06 | PCM.PREANE ---
Preanesthetic Assessment - Procedure Proposed Procedure: Right thumb A1 val release Bilateral CMC injection - Anesthesia/Transfusion/Family Hx Anesthesia History: Prior Anesthesia Without Reaction Family History of Anesthesia Reaction: No Transfusion History: No Prior Transfusion(s) Intubation History: Unknown - Review of Systems General: No Symptoms Pulmonary: No Symptoms Cardiovascular: No Symptoms Gastrointestinal: Other (GERD controlled with Prilosec. ) Neurological: Other (Restless leg syndrome) Other: Reports: Depression, Anxiety - Physical Assessment NPO Status Date: 08/10/20 NPO Status Time: 20:00 Vital Signs: Last Vital Signs Temp 36.4 C 08/11/20 07:15 Pulse 100 08/11/20 07:15 Resp 16 08/11/20 07:15 BP 155/87 H 08/11/20 07:15 Pulse Ox 98 08/11/20 07:15 Height: 1.55 m Weight: 84.368 kg ASA Class: 2 Mental Status: Alert & Oriented x3 Airway Class: Mallampati = 3 Dentition: Reports: Normal Dentition (Growth noted to upper palate, Goldie hightower. ) Thyro-Mental Finger Breadths: 3 Mouth Opening Finger Breadths: 3 ROM/Head Extension: Full Lungs: Clear to Auscultation, Normal Respiratory Effort Cardiovascular: Regular Rate, Regular Rhythm - Imaging/EKG Impressions: Sinus Rhythm rate 89 bpm - Allergies Allergies/Adverse Reactions: Allergies Allergy/AdvReac Type Severity Reaction Status Date / Time lisinopril Allergy Itching Verified 08/11/20 07:46 Penicillins Allergy Cannot Verified 08/11/20 07:46 Remember - Anesthesia Plan Pre-Op Medication Ordered: Anxiolytic - Acknowledgements Anesthesia Type Planned: MAC Pt an Appropriate Candidate for the Planned Anesthesia: Yes Alternatives and Risks of Anesthesia Discussed w Pt/Guardian: Yes Pt/Guardian Understands and Agrees with Anesthesia Plan: Yes PreAnesthesia Questionnaire HEENT History: Reports: Allergic Rhinitis, Otitis Media, Other (See Below) Other HEENT History: eustachian tube dysfunction, pharyngitis, has glasses and flipper, blurred vision, cerumen impaction, pharyngitis Cardiovascular History: Reports: High Cholesterol, Hypertension Other Cardiovascular History: palpitations Respiratory History: Reports: None Other Respiratory History: cough Gastrointestinal History: Reports: GERD, Hemorrhoids Genitourinary History: Reports: Chronic Renal Insuffiency, Urinary Incontinence, UTI, Recurrent Other Genitourinary History: vaginal itching, viral warts, stress urinary incontinence, fibroid, post menopausal bleeding, L breast cyst, vaginitis [employer]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 senile atrophic vagintits, uterine lesion, vaginal itching Musculoskeletal History: Reports: Other (See Below) Other Musculoskeletal History: restless leg syndrome, IT band syndrome, L knee pain, muscle cramps Neurological History: Reports: Migraines, Vertigo, Other (See Below) Other Neuro History: dizziness, vertigo Psychiatric History: Reports: Anxiety, Depression Other Psychiatric History: insomnia Endocrine/Metabolic History: Reports: Hypothyroidism, Obesity/BMI 30+ Hematologic History: Reports: None Other Hematologic History: hypokalemia Immunologic History: Reports: None Oncologic (Cancer) History: Reports: None Dermatologic History: Reports: Other (See Below) Other Dermatologic History: atopic dermatitis, back nevus, viral warts - Infectious Disease History Infectious Disease History: Reports: Chicken Pox, Measles - Past Surgical History Head Surgeries/Procedures: Reports: None HEENT Surgical History: Reports: Oral Surgery, Tonsillectomy Cardiovascular Surgical History: Reports: None Respiratory Surgical History: Reports: None GI Surgical History: Reports: Colonoscopy Female Surgical History: Reports: Hysterectomy, Tubal Ligation Male Surgical History: Reports: None Endocrine Surgical History: Reports: None Neurological Surgical History: Reports: None Musculoskeletal Surgical History: Reports: Shoulder Surgery Oncologic Surgical History: Reports: None Dermatological Surgical History: Reports: None - SUBSTANCE USE Tobacco Use Status *Q: Former Tobacco User Recreational Drug Use History: No - HOME MEDS Home Medications: Home Meds Levothyroxine 75 mcg PO DAILY 05/23/15 [History] Hydrochlorothiazide 25 mg PO DAILY 08/02/16 [History] Omeprazole 20 mg PO DAILY 10/08/18 [History] Venlafaxine HCl [Venlafaxine ER] 150 mg PO DAILY 10/08/18 [History] Carbidopa/Levodopa [Carbidopa-Levodopa 25-100 Tab] 1 tab PO DAILY 02/22/20 [History] amLODIPine Besylate [Amlodipine Besylate] 10 mg PO DAILY 02/22/20 [History] Eszopiclone [Lunesta] 1 mg PO BEDTIME PRN 08/10/20 [History] L Acidophil/B Lactis/B Longum [Florajen3] 460 mg PO DAILY 08/10/20 [History] LORazepam [Ativan] 1 mg PO BID PRN 08/10/20 [History] Levothyroxine 25 mcg PO DAILY 08/10/20 [History] Prevagen 1 dose PO DAILY 08/10/20 [History] Triamcinolone Acetonide [Triamcinolone Acetonide 0.025%] 1 dose TOP BID PRN 08/10/20 [History] Ubidecarenone [Coq-10] 100 mg PO DAILY 08/10/20 [History] Vit A/Vit C/Vit E/Zinc/Copper [Preservision Areds Softgel] 1 cap PO DAILY 08/10/20 [History] atorvaSTATin [Lipitor] 40 mg PO BEDTIME 08/10/20 [History] - CURRENT (IN HOUSE) MEDS Current Meds: Current Medications Lactated Ringer's (Ringers, Lactated) 1,000 mls @ 125 mls/hr IV ASDIRECTED TANESHA Stop: 08/11/20 23:00 Last Admin: 08/11/20 07:20 Dose: 125 mls/hr Documented by: Lidocaine/Sodium Bicarbonate (Lidocaine 1%/Sod Bicarbonate In Ns 8.4% 1 Ml Syringe) 0.25 ml IDERM ONETIME PRN PRN Reason: Prior to IV Start Stop: 08/11/20 18:00 Last Admin: 08/11/20 07:20 Dose: 0.25 ml Documented by: Sodium Chloride (Sodium Chloride 0.9% 10 Ml Syringe) 10 ml FLUSH ASDIRECTED PRN PRN Reason: Keep Vein Open Stop: 08/11/20 18:00 Discontinued Medications Betamethasone Acet/Betameth SodPhos (Betamethasone Acetate/Betamethasone Sod Phosphate 30 Mg/5 Ml Mdv) Confirm Administered Dose 30 mg .ROUTE .STK-MED ONE Stop: 08/11/20 07:20 Bupivacaine HCl (Bupivacaine 0.25% 10 Ml Sdv) Confirm Administered Dose 20 ml .ROUTE .STK-MED ONE Stop: 08/11/20 07:21 Cefazolin Sodium (Cefazolin 1 Gm Vial) Confirm Administered Dose 2 gm .ROUTE .STK-MED ONE Stop: 08/11/20 07:43 Fentanyl (Fentanyl 100 Mcg/2 Ml Sdv) Confirm Administered Dose 100 mcg .ROUTE .STK-MED ONE Stop: 08/11/20 07:43 Lactated Ringer's (Ringers, Lactated) Confirm Administered Dose 1,000 mls @ as directed .ROUTE .[facility] [employer]-MED ONE Stop: 08/11/20 07:43 Ketamine HCl (Ketamine 500 Mg/10 Ml Mdv) Confirm Administered Dose 500 mg .ROUTE .[employer] [employer]-MED ONE Stop: 08/11/20 07:47 Ketorolac Tromethamine (Ketorolac 30 Mg/Ml Sdv) Confirm Administered Dose 30 mg .ROUTE .[employer]-MED ONE Stop: 08/11/20 07:43 Midazolam HCl (Midazolam 1 Mg/Ml 2 Ml Sdv) Confirm Administered Dose 2 mg .ROUTE .[employer] [employer]-MED ONE Stop: 08/11/20 07:44 Ondansetron HCl (Ondansetron 4 Mg/2 Ml Sdv) Confirm Administered Dose 4 mg .ROUTE .[employer] [employer]-MED ONE Stop: 08/11/20 07:43 Propofol (Propofol 200 Mg/20 Ml Sdv) Confirm Administered Dose 400 mg .ROUTE .[employer] [employer]-MED ONE Stop: 08/11/20 07:43
[2020-08-11] MEDS: Betamethasone Acetate/Betamethasone Sod Phosphate 30 MG/5 ML MDV ONE ×2 (08:45→08:55)
[2020-08-11] MEDS: Bupivacaine 0.25% 10 ML SDV ONE ×3 (08:45→08:55)
[2020-08-11] MEDS ORDERED: Ketorolac 15 MG/ML SDV ONE (09:00)
--- NOTE | 2020-08-11 09:13 | PCM48HPAN ---
Post Anesthesia Note - EVALUATION WITHIN 48HRS OF ANESTHETIC Vital Signs in Normal Range: Yes Patient Participated in Evaluation: Yes Respiratory Function Stable: Yes Airway Patent: Yes Cardiovascular Function Stable: Yes Hydration Status Stable: Yes Pain Control Satisfactory: Yes Nausea and Vomiting Control Satisfactory: Yes Mental Status Recovered: Yes Vital Signs: Last Vital Signs Temp 36.4 C 08/11/20 07:15 Pulse 100 08/11/20 07:15 Resp 16 08/11/20 07:15 BP 155/87 H 08/11/20 07:15 Pulse Ox 98 08/11/20 07:15 0908 142/79 85 12 98% on 2 L/NC will titrate to off. 97.7F
[2020-08-11 09:51] VITALS: BP 147/85; PULSE 79
--- NOTE | 2020-08-23 19:22 | OR ---
DATE OF OPERATION: 08/11/2020 SURGEON: Kaiden Kidd MD PREOPERATIVE DIAGNOSIS: 1. Right thumb stenosing tenosynovitis, M65.311. 2. Right thumb carpometacarpal arthritis, M18.11. 3. Left thumb carpometacarpal arthritis, M18.12. POSTOPERATIVE DIAGNOSIS: 1. Right thumb stenosing tenosynovitis, M65.311. 2. Right thumb carpometacarpal arthritis, M18.11. 3. Left thumb carpometacarpal arthritis, M18.12. OPERATION PERFORMED: 1. Right thumb A1 val release, . 2. Right thumb carpometacarpal injection, . 3. Left thumb carpometacarpal injection, . ASSISTANT PROFESSOR OF RELIGION: Cheryl Rangel. DESCRIPTION OF PROCEDURE: The patient is a 65-year-old female with symptomatic right thumb stenosing tenosynovitis with bilateral thumb CMC arthritis. After discussing the risks, benefits, and alternatives to both conservative as well as surgical treatment, the patient verbalized understanding and wished to proceed with surgery. The patient was brought to the operating room and underwent appropriate anesthesia. The right upper extremity was prepped and draped in standard orthopedic fashion. A surgical pause was performed, identifying the appropriate patient and the appropriate extremity to be operated upon. Preoperative antibiotics were given. First, after sterilely prepping the left thumb, we injected a mixture of 1 mL Celestone and 3 mL 0.25% bupivacaine under sterile condition without complication. We injected about 1.5 mL into the CMC joint. We then turned our attention to the right thumb. The right upper extremity was exsanguinated, and a pneumatic tourniquet was inflated to 250 mmHg. We made a longitudinal incision over the flexor surface of the MP joint surface. Dissection was carried down through skin and subcutaneous tissue. Hemostasis was obtained. We identified the radial and ulnar neurovascular bundles. We dissected down to the A1 val. The A1 val was incised. We released the flexor sheath proximally and distally. This released the tendon nicely. The wound was irrigated thoroughly. The skin was closed with 5-0 nylon. We then injected her right thumb CMC joint under sterile conditions. We injected a mixture of 1 mL of Celestone and 3 mL of 0.25% bupivacaine without complication. We injected about 1.5 mL in the right thumb CMC joint. ANESTHESIA: ESTIMATED BLOOD LOSS: MMODAL /[id number]
== END 2020-08-11 09:55 | disposition home or self-care (01) ==
LOC: JD.SDS 07:11
PROVIDERS: ATTEND Orthopaedic Surgery
DX: M65.311 Trigger thumb, right thumb (principal); M18.0 Bilateral primary osteoarthritis of first carpometacarpal joints; M65.841 Other synovitis and tenosynovitis, right hand; R73.03 Prediabetes; I12.9 Hypertensive chronic kidney disease with stage 1 through stage 4 chronic kidney disease, or unspecified chronic kidney disease; N18.9 Chronic kidney disease, unspecified; E78.00 Pure hypercholesterolemia, unspecified; E03.9 Hypothyroidism, unspecified; G25.81 Restless legs syndrome; M17.12 Unilateral primary osteoarthritis, left knee; E78.1 Pure hyperglyceridemia; E66.9 Obesity, unspecified; Z68.34 Body mass index [BMI] 34.0-34.9, adult; Z88.0 Allergy status to penicillin; Z88.8 Allergy status to other drugs, medicaments and biological substances; Z87.891 Personal history of nicotine dependence; Z79.890 Hormone replacement therapy; Z98.890 Other specified postprocedural states
CPT/HCPCS: 20605; 26055; 87641; J0690; J0702; J1885; J2250; J2405; J2704; J3010; J3490; J7120; 01810

== ENCOUNTER → 2021-10-26 | Day surgery (SDC) | payer MEDICARE, BC ==
[~2021-10-26] MED LIST changes: +HYDROmorphone 0.5 MG/0.5 ML Syringe IVPUSH PRN; +Lidocaine 1% 6 ML ONE; +Ondansetron 4 MG/2 ML SDV IVPUSH PRN; +Propofol 200 MG/20 ML SDV ONE; +Sodium Chloride 0.9% 10 ML Syringe FLUSH SCH; +fentaNYL 100 MCG/2 ML SDV IVPUSH PRN
[2021-10-26 10:50] VITALS: BP 118/66; PULSE 93
== END | disposition home or self-care (01) ==
LOC: JD.SDS 07:59
PROVIDERS: ATTEND Surgery
DX: Z12.11 Encounter for screening for malignant neoplasm of colon (principal); K57.30 Diverticulosis of large intestine without perforation or abscess without bleeding; K64.8 Other hemorrhoids; K29.50 Unspecified chronic gastritis without bleeding; K31.7 Polyp of stomach and duodenum; K62.1 Rectal polyp; F41.9 Anxiety disorder, unspecified; F32.A Depression, unspecified; G47.33 Obstructive sleep apnea (adult) (pediatric); G43.909 Migraine, unspecified, not intractable, without status migrainosus; I10 Essential (primary) hypertension; E03.9 Hypothyroidism, unspecified; E78.2 Mixed hyperlipidemia; E66.9 Obesity, unspecified; Z88.8 Allergy status to other drugs, medicaments and biological substances; Z88.0 Allergy status to penicillin; Z90.49 Acquired absence of other specified parts of digestive tract; Z79.890 Hormone replacement therapy; Z79.899 Other long term (current) drug therapy; Z87.891 Personal history of nicotine dependence
CPT/HCPCS: 43239; 43251; 45380; J2704; J7120; 00813

== ENCOUNTER 2022-03-19 07:47 | Day surgery (SDC) | payer MEDICARE, BC ==
[~2022-03-19 07:47] MED LIST changes: +Acetaminophen 325 MG Tab PO SCH; -HYDROmorphone 0.5 MG/0.5 ML Syringe IVPUSH PRN; -Lidocaine 1% 6 ML ONE; +Morphine 8 MG, EPINEPHrine 0.3 MG, Cefuroxime 750 MG, Ketorolac 30 MG, Sodium Chloride ... PRN; -Ondansetron 4 MG/2 ML SDV IVPUSH PRN; +Pregabalin 25 MG Cap PO SCH; -Propofol 200 MG/20 ML SDV ONE; -fentaNYL 100 MCG/2 ML SDV IVPUSH PRN; +oxyCODONE ER 10 MG TAB.ER PO SCH
[2022-03-19] MEDS ORDERED: Vancomycin 1 GM SDV ONE (08:32)
[2022-03-19] MEDS ORDERED: Tranexamic Acid 1,000 MG/10 ML Vial ONE (08:32)
[2022-03-19] MEDS ORDERED: Midazolam 1 MG/ML 2 ML SDV ONE (08:59)
[2022-03-19] MEDS ORDERED: Lidocaine 1% 4 ML ONE (08:59)
[2022-03-19] MEDS ORDERED: ceFAZolin 2 GM Vial ONE (08:59)
[2022-03-19] MEDS ORDERED: Propofol 200 MG/20 ML SDV ONE (08:59)
[2022-03-19] MEDS ORDERED: fentaNYL 100 MCG/2 ML SDV ONE (09:00)
[2022-03-19] MEDS ORDERED: Lactated Ringers 1,000 ML ONE (10:35)
[2022-03-19] MEDS ORDERED: Ondansetron 4 MG/2 ML SDV IVPUSH PRN (11:01)
[2022-03-19] MEDS ORDERED: diphenhydrAMINE 50 MG/ML SDV IVPUSH PRN (11:01)
[2022-03-19] MEDS ORDERED: fentaNYL 100 MCG/2 ML SDV IVPUSH PRN (11:01)
[2022-03-19] MEDS ORDERED: ePHEDrine 50 MG/ML SDV ONE (11:02)
[2022-03-19] MEDS ORDERED: Phenylephrine HCl In 0.9% NaCl 1 MG/10 ML Vial ONE (11:17)
[2022-03-19] MEDS ORDERED: Ketorolac 30 MG/ML SDV ONE (11:26)
[2022-03-19] MEDS ORDERED: Ondansetron 4 MG/2 ML SDV ONE (11:26)
[2022-03-19] MEDS ORDERED: Ropivacaine 0.5% 5 MG/ML 30 ML SDV ONE (12:18)
[2022-03-19] MEDS ORDERED: EPINEPHrine 1 MG/ML SDV ONE (12:19)
[2022-03-19] MEDS ORDERED: oxyCODONE 5 MG Tab PO SCH (13:07)
[2022-03-19 13:43] VITALS: BP 122/64; PULSE 89
== END 2022-03-19 15:05 | disposition home or self-care (01) ==
LOC: JD.SDS 07:47
PROVIDERS: ATTEND Orthopaedic Surgery
DX: M17.12 Unilateral primary osteoarthritis, left knee (principal); I11.0 Hypertensive heart disease with heart failure; I50.32 Chronic diastolic (congestive) heart failure; F32.A Depression, unspecified; E78.00 Pure hypercholesterolemia, unspecified; I25.10 Atherosclerotic heart disease of native coronary artery without angina pectoris; E07.9 Disorder of thyroid, unspecified; Z79.899 Other long term (current) drug therapy; Z79.890 Hormone replacement therapy; Z79.82 Long term (current) use of aspirin; Z88.0 Allergy status to penicillin; Z88.8 Allergy status to other drugs, medicaments and biological substances; Z98.890 Other specified postprocedural states; Z90.710 Acquired absence of both cervix and uterus; Z87.891 Personal history of nicotine dependence
CPT/HCPCS: 01402; 64450; 73560-26-LT; 73560-LT; 76942; 97110-GP; 97116-GP; 97161-GP; A9270-GY; C1713; C1776; J0171; J0690; J0697; J1885; J2250; J2270; J2405; J2704; J2795; J3010; J3370; J7120

== ENCOUNTER 2025-03-31 08:51 | Day surgery (SDC) | payer MEDICARE ==
[~2025-03-31 08:51] MED LIST changes: -Acetaminophen 325 MG Tab PO SCH; -Lidocaine 1%/Sod Bicarbonate in NS 8.4% 1 ML Syringe IDERM PRN; -Morphine 8 MG, EPINEPHrine 0.3 MG, Cefuroxime 750 MG, Ketorolac 30 MG, Sodium Chloride ... PRN; -Pregabalin 25 MG Cap PO SCH; -oxyCODONE ER 10 MG TAB.ER PO SCH
[2025-03-31] MEDS ORDERED: Ondansetron 4 MG/2 ML SDV ONE (09:05)
[2025-03-31] MEDS ORDERED: Lidocaine 1% 4 ML ONE (09:05)
[2025-03-31] MEDS ORDERED: Propofol 200 MG/20 ML SDV ONE (09:05)
[2025-03-31] MEDS ORDERED: fentaNYL 100 MCG/2 ML SDV ONE (09:06)
[2025-03-31] MEDS ORDERED: Midazolam 1 MG/ML 2 ML SDV ONE (09:06)
[2025-03-31] MEDS: Lactated Ringers 1,000 ML IV SCH (09:25)
[2025-03-31] MEDS ORDERED: fentaNYL 100 MCG/2 ML SDV IVPUSH PRN (10:17)
[2025-03-31] MEDS ORDERED: Ondansetron 4 MG/2 ML SDV IVPUSH PRN (10:17)
[2025-03-31] MEDS ORDERED: ePHEDrine 50 MG/ML SDV ONE (11:17)
[2025-03-31] MEDS: EPINEPHrine 1 MG/ML SDV ONE (13:17)
[2025-03-31 13:51] VITALS: BP 121/74; PULSE 74
== END 2025-03-31 13:30 | disposition home or self-care (01) ==
LOC: JD.SDS 08:51
PROVIDERS: ATTEND Orthopaedic Surgery
DX: T84.84XA Pain due to internal orthopedic prosthetic devices, implants and grafts, initial encounter (principal); T84.82XA Fibrosis due to internal orthopedic prosthetic devices, implants and grafts, initial encounter; E78.00 Pure hypercholesterolemia, unspecified; I11.0 Hypertensive heart disease with heart failure; I50.9 Heart failure, unspecified; K21.9 Gastro-esophageal reflux disease without esophagitis; E03.9 Hypothyroidism, unspecified; I25.10 Atherosclerotic heart disease of native coronary artery without angina pectoris; F41.9 Anxiety disorder, unspecified; F32.A Depression, unspecified; E66.9 Obesity, unspecified; Z79.890 Hormone replacement therapy; Z79.899 Other long term (current) drug therapy; Y83.1 Surgical operation with implant of artificial internal device as the cause of abnormal reaction of the patient, or of later complication, without mention of misadventure at the time of the procedure
CPT/HCPCS: 29870; 29875; J0169; J0690; J2003; J2250; J2405; J2704; J3010; J7120; J0665; J3490